=== PATIENT | female | born 1935 | race African-American/Black ===

== ENCOUNTER 2017-07-09 03:48 | Inpatient (IN) | payer MEDICARE ==
[~2017-07-09] VITALS: Ht 172.7 cm; Wt 116.3 kg
[2017-07-09] VITALS (48 sets, daily range): BP systolic 104–192; BP diastolic 44–127
[~2017-07-09 03:48] MED LIST: ALPOS OP; AMLO5TAB1 GT; ATOR40TA GT; DILT120C19 GT; FAMO-90 GT; GLYC2TAB4 GT; KEP500L GT; LACT1CAP4 GT; LAS20I GT; LISI20TA21 GT; MEDI30SO1 GT; MULT-2429 GT; SENN-89 GT; [UNRECOGNIZED DRUG - CODE] GT; [UNRECOGNIZED DRUG - CODE] GT; [UNRECOGNIZED DRUG - CODE] GT; [UNRECOGNIZED DRUG - CODE] PO
--- NOTE | 2017-07-09 03:48 | NUR ---
81/[place] [facility] [place]. PT ON TRACH, MECHANICAL VENT DEPENDENT IN FACILITY. RT AND ERMD AT BEDSIDE. PT SATS AT 84%, PT PLACED ON VENT 100% SATS ON 100 FiO2.
--- NOTE | 2017-07-09 03:48 | NUR ---
0343- PT BIBA ALS. TAKEN TO BED 10. DR. YANG EVALUATING PATIENT AT BEDSIDE
[2017-07-09] MEDS ORDERED: DILTIAZEM 25 MG/5 ML VIAL IVP ONE ×2 (03:50→04:01)
[2017-07-09] MEDS ORDERED: NACL 0.9% 1,000 ML IV ONE ×2 (03:50→06:10)
--- NOTE | 2017-07-09 03:50 | NUR ---
RT AND XRAY AT BEDSIDE
--- NOTE | 2017-07-09 03:50 | NUR ---
PT ON AFIB RVR, AMIODARONE IVP GIVEN, SEE MAR
--- NOTE | 2017-07-09 03:59 | NUR ---
PT ARRIVE [facility] WITH [facility]IA AMBULANCE, PT HAVE A TRACH YASIR, PLACED PT ON VENT AC 12, VT 500, PEEP 5, FIO2 100%, CAN NOT OBTAIN SPUTUM PT IS DRY, ABG DONE, NORMAL RANGE.
[2017-07-09] MEDS ORDERED: AMIODARONE 150 MG in DEXTROSE 5% 100 ML IV ONE ×2 (04:00→07:20)
[2017-07-09] MEDS ORDERED: VANCOMYCIN 1,000 MG in DEXTROSE 5% 250 ML IV ONE (04:00)
[2017-07-09] MEDS ORDERED: AMIODARONE 150 MG/3 ML VIAL IV ONE ×2 (04:10→07:29)
--- NOTE | 2017-07-09 04:20 | NUR ---
BP 124/52, 107HR, 98.2, 22RR, 100% SPO2 ON MECH VENT. PT STABLE AT THIS TIME, NO ACUTE DISTRESS NOTED, ER MD MADE AWARE
[2017-07-09] MEDS: PIPERACILLIN/TAZOBACTAM 3.375 GM in DEXTROSE 5% 50 ML IV ONE ×2 (04:30→06:10)
[2017-07-09] MEDS ORDERED: FUROSEMIDE 40 MG/4 ML VIAL IVP SCH (04:40)
[2017-07-09] MEDS ORDERED: PIPERACILLIN/TAZOBACTAM 3.375 GM VIAL IV ONE (04:46)
[2017-07-09] MEDS ORDERED: AMIODARONE 450 MG in DEXTROSE 5% 250 ML IV ONE (05:00)
--- NOTE | 2017-07-09 05:20 | NUR ---
ER MD YANG PLACED CENTRAL LINE ON RT IJ FOLLOWING STERILE PROCEDURE. STAT CXR PLACED. CXR REVIEWED BY DR YANG, HARBORSIDE, OK FOR MED INFUSION
--- NOTE | 2017-07-09 05:30 | NUR ---
IV removed, catheter intact and site benign. Applied folded 4x4 gauze and tape to stop bleeding.
[2017-07-09] MEDS ORDERED: VANCOMYCIN 1,000 MG VIAL ONE (05:41)
[2017-07-09 05:54] LABS: BASOPHILS # (AUTO) 0.1 K/uL (0.00-0.22); BASOPHILS % (AUTO) 0.6 % (0.0-2.0); EOSINOPHILS % (AUTO) 0.2 % (0.0-4.0); HEMATOCRIT 34.2 % (36-48); LYMPHOCYTES # (AUTO) 0.8 K/uL (2.5-16.5); LYMPHOCYTES % (AUTO) 4.1 % (20.5-51.1); MEAN CORPUSCULAR HEMOGLOBIN 27 pg (27-31); MEAN CORPUSCULAR HGB CONC 32 g/dL (33-37); MEAN CORPUSCULAR VOLUME 83 fL (80-94); MONOCYTES # (AUTO) 1.5 K/uL (0.8-1.0); MONOCYTES % (AUTO) 8.2 % (1.7-9.3); NEUTROPHILS # (AUTO) 16.3 K/uL (1.8-7.7); NEUTROPHILS % (AUTO) 86.9 % (42.2-75.2); PLATELET COUNT (AUTO) 451 K/uL (140-450); RED BLOOD CELL COUNT(AUTO) 4.15 MIL/uL (4.20-5.40); RED CELL DISTRIBUTION WIDTH 17.2 % (11.6-13.7)
[2017-07-09] MEDS ORDERED: DILTIAZEM 125 MG in DEXTROSE 5% 100 ML IV ONE (06:00)
--- NOTE | 2017-07-09 06:00 | NUR ---
VSS, PT STABLE AT THIS TIME # 16 FR Degroot catheter with 10 mlSW utilizing sterile technique. Immediate return of 15 ml YELLOW AND CLOUDY urine noted. Bedside drainage bag placed below level of bladder. Urine sample collected and sent to lab. Pt tolerated procedure WELL.
[2017-07-09] MEDS ORDERED: AMIODARONE 450 MG/9 ML VIAL IV ONE (06:04)
[2017-07-09] MEDS ORDERED: NOREPINEPHRINE 4 MG in DEXTROSE 5% 250 ML IV ONE (06:10)
[2017-07-09] MEDS ORDERED: DILTIAZEM 125 MG/25 ML VIAL IV ONE (06:14)
[2017-07-09 06:15] LABS: ANION GAP 12.6 (8-16); CARBON DIOXIDE 30.2 mmol/L (21-32); CHLORIDE 103 mmol/L (98-107); CREATININE 0.9 mg/dL (0.6-1.3); GLUCOSE 126 mg/dL (74-106); POTASSIUM 3.8 mmol/L (3.5-5.1); SODIUM SERUM 142 mmol/L (136-145); UREA NITROGEN, BLOOD 21 mg/dL (7-18)
[2017-07-09 06:18] LABS: WHITE BLOOD COUNT (AUTO) 18.7 K/uL (4.8-10.8)
[2017-07-09] MEDS ORDERED: NOREPINEPHRINE 4 MG/4 ML VIAL IV ONE (06:21)
[2017-07-09 06:29] LABS: PROTHROMBIN TIME 12.4 secs (10.8-13.4)
[2017-07-09 06:30] LABS: ALBUMIN 1.6 g/dL (3.4-5.0); ASPARTATE AMINOTRANSFERASE 220 U/L (15-37)
[2017-07-09] MEDS ORDERED: NOREPINEPHRINE 8 MG in DEXTROSE 5% 250 ML IV STA (06:33)
--- NOTE | 2017-07-09 06:38 | NUR ---
BP 90/41, 146HR, ER MADE AWARE, ORDER FOR LEVO DRIP, SEE MAR
--- NOTE | 2017-07-09 06:45 | NUR ---
BP LABILE, LEVO TITRATED PER PROTOCOL,SEE MAR
[2017-07-09] MEDS ORDERED: ALBUMIN HUMAN 25% 50 ML IV ONE (07:15)
[2017-07-09] MEDS ORDERED: DIGOXIN 0.25 MG/ML AMP IV ONE ×2 (07:20→07:28)
--- NOTE | 2017-07-09 07:20 | NUR ---
PT IN AFIB RVR 158, ER MD YANG AND NAEL AT BEDSIDE, ORDER TO GIVE DIGOXIN AND AMIODARONE, SEE MAR
[2017-07-09] MEDS ORDERED: ALBUMIN HUMAN 25% 100 ML IV ONE (07:28)
--- NOTE | 2017-07-09 07:35 | NUR ---
Patient will be admitted to care of [facility]. Admited to ICU. Will go to room 3. Belongings list completed.BEDSIDE Report to KAMLESH CHENG. TRANSPORTED WITH INSPECTOR ELEVATORS AND VENT WITH MARK CHENG, SHAILESH RN, AND RT'S. PT STABLE UPON TRANSFER
--- NOTE | 2017-07-09 07:40 | NUR ---
PT ARRIVED TO UNIT VIA GURNEY. REPORT RECEIVED FROM LIBRADO FLORES RN. PT OPENS EYES, BUT DOES NOT FOLLOW COMMANDS, FLACC 0. PT IS TRACH TO VENT. FIO2: 100%, AC: 12, TV: 500, PEEP: 5. PT HAS CENTRAL LINE TO RIJ, TLC, ALL PORTS PATENT AND INTACT. G TUBE IN PLACE, CLAMPED. LOPEZ CATHETER IN PLACE DRAINING TO GRAVITY DRAINAGE BAG. SKIN IS INTACT, OLD SCARRING NOTED TO BILATERAL HANDS, BLE, AND BACK. PT IS CURRENTLY A FIB WITH RVR ON THE MONITOR. PT IS ON LEVOPHED DRIP. ADMISSION ASSESSMENT COMPLETE. MRSA AND G TUBE CULTURE SWABS OBTAINED. SAFETY PRECAUTIONS IN PLACE WITH BED IN LOWEST POSITION AND SIDE RAILS UP X2. CALL LIGHT WITHIN REACH. WILL CONTINUE TO MONITOR.
--- NOTE | 2017-07-09 07:50 | NUR ---
DR. BRANTLEY' GROUP PRESENT AT BEDSIDE.
[2017-07-09] MEDS ORDERED: ACETAMINOPHEN 325 MG TAB PO PRN (08:05)
[2017-07-09] MEDS ORDERED: HYDROcodone/APAP 7.5/325 MG 1 TAB PO PRN (08:05)
--- NOTE | 2017-07-09 08:29 | NUR ---
RCV'D PT ON MECHANICAL VENTILATION TRACHED WITH SHILEY 4 DCT. VENT SETTINGS ARE AC 12,500,100%,+5. TRACH IS IN PLACE AND SECURED. VENT IS CONNECTED TO RED OUTLET. ALARMS ARE AUDIBLE. AMBU BAG AT BEDSIDE. TRANSFERRED PT FROM ER TO ICU WITH NO INCIDENT. PT IS AWAKE AND QUITE.BS DIMINISHED. SXN'D PT FOR SPUTUM SAMPLE BUT PT HAD NO SECRETIONS. WILL TRY AGAIN. WILL CONTINUE TO MONITOR.
[2017-07-09] MEDS: NACL 0.9% 1,000 ML IV SCH ×3 (08:32→23:00)
[2017-07-09] MEDS: PIPER/TAZO 3.375GM/D5W PREMIX 50 ML IV SCH ×3 (08:59→21:22)
[2017-07-09] MEDS ORDERED: ALBUTEROL SULFATE/IPRATROPIU 3 ML SOL IH PRN (09:00)
[2017-07-09] MEDS ORDERED: DOCUSATE SODIUM 100 MG GELCAP PO SCH (09:00)
[2017-07-09] MEDS: AMIODARONE 450 MG in DEXTROSE 5% 250 ML IV SCH ×2 (09:02→17:52)
--- NOTE | 2017-07-09 09:05 | NUR ---
DECREASED FIO2 TO 70%. SKYLAR WHITLOCK AWARE. PT'S SPO2 IS 98%. WILL CONTINUE TO MONITOR.
[2017-07-09] MEDS: LACTOBACILLUS RHAMNOSUS GG 1 EACH CAP GT SCH (09:19)
[2017-07-09] MEDS: DOCUSATE 100 MG/10 ML UDC GT SCH ×2 (09:19→21:19)
[2017-07-09] MEDS ORDERED: [UNRECOGNIZED DRUG - CODE] GT (09:19)
--- NOTE | 2017-07-09 09:22 | NUR ---
PT TOLERATED MEDS WELL.
[2017-07-09 09:29] LABS: BILIRUBIN,URINE 2+ (NEGATIVE); COLOR,URINE YELLOW (YELLOW); LEUKOCYTE ESTERASE ,URINE TRACE (NEGATIVE); NITRITE, URINE NEGATIVE (NEGATIVE); PH,URINE 8.5 (5.0-9.0); UGLUCOSE TRACE (NEGATIVE)
--- NOTE | 2017-07-09 09:39 | NUR ---
CALLED [facility] AND SPOKE WITH CARLEY, . SHE SAID THEY KNOW OF THE PATIENT. GOT INFORMATION FROM ER. FAXED INITIAL REVIEW TO [facility] [phone].
[2017-07-09 09:41] LABS: APPEARANCE,URINE HAZY (CLEAR)
[2017-07-09 09:45] LABS: WBC,URINE 0-5 (RARE) /HPF (0-5)
[2017-07-09 09:47] LABS: BLOOD, URINE 1+ (NEGATIVE); RBC,URINE 3-10 (FEW) /HPF (0-5)
[2017-07-09 09:51] LABS: CHOL/HDL RATIO 5.4 (1-4.5); FREE T4 (FREE THYROXINE) 1.27 ng/dL (0.76-1.46); MAGNESIUM 1.6 mg/dL (1.8-2.4); THYROID STIMULATING HORMONE 1.41 uIU/mL (0.34-3.74)
--- NOTE | 2017-07-09 11:02 | NUR ---
RECEIVED TELEPHONE CONSENT FROM RENETTA PT'S COUSIN AND CONSERVATOR. VERIFIED BY TWO LICENSED RN'S. CONSENT SIGNED AND PLACED IN PT'S CHART.
[2017-07-09] MEDS ORDERED: MAG SULF 2000 MG/WATER PREMIX 50 ML IV SCH (12:00)
--- NOTE | 2017-07-09 12:14 | NUR ---
PLASTICS PLATER PRESENT AT BEDSIDE.
--- NOTE | 2017-07-09 12:21 | NUR ---
SPOKE WITH BERNARD, PT'S NEXT OF KIN, AND UPDATED HER ON PT'S STATUS.
[2017-07-09] MEDS: ALBUTEROL SULFATE/IPRATROPIU 3 ML SOL IH SCH ×2 (13:16→20:19)
--- NOTE | 2017-07-09 13:29 | NUR ---
VENT CHECK DONE. STARTED PT ON HHN TX OF DUONEB PER ORDERS. PT IS TOLERATING WELL. NO SOB OR DISTRESS NOTED. SXN'D PT WITH SML SMT OF LIGHT GREEN SECRETIONS. WILL CONTINUE TO MONITOR.
--- NOTE | 2017-07-09 13:47 | NUR ---
DR. POSEY IN TO SEE PT. WILL FOLLOW UP ON ORDERS.
--- NOTE | 2017-07-09 14:01 | NUR ---
07/09/17 RD INITIAL ASSESSMENT COMPLETED PLEASE REFER TO NUTRITION ASSESSMENT UNDER CARE ACTIVITY FOR ESTIMATED NUTRITIONAL NEEDS. 1. CONTINUE NUTRITION SUPPORT FIBERSOURCE AT 55 ML/HR WITH 45 ML FREE WATER FLUSH Q3H VIA GTUBE, TOLERATED 2. IF PT TOLERATES CURRENT TUBE FEEDING AT GOAL, CONSIDER INCREASING TO 65 ML/HR TO PROVIDE 1560 ML TOTAL VOLUME, 1872 KCAL AND 84 GM PROTEIN TO MEET 100% OF ESTIMATED KCAL AND PROTEIN NEEDS. 3. RD TO FOLLOW-UP 2-3 DAYS, HIGH RISK LALIT NARAYANAN RD
--- NOTE | 2017-07-09 14:40 | NUR ---
PT TAKEN TO CT
--- NOTE | 2017-07-09 14:40 | NUR ---
DECREASED FIO2 TO 70%. SKYLAR WHITLOCK AWARE. WILL CONTINUE TO MONITOR. NO SOB OR DISTRESS NOTED.
--- NOTE | 2017-07-09 15:10 | NUR ---
PT BACK FROM CT AND PLACED ON THE MONITOR.
--- NOTE | 2017-07-09 16:48 | NUR ---
ABG DONE WITH NO INCIDENT. ABG RESULTS GIVEN TO DR CERVANTES. WILL CONTINUE TO MONITOR.
--- NOTE | 2017-07-09 16:48 | NUR ---
ABG DONE WITH NO INCIDENT. RESULTS GIVEN TO DR CERVANTES. DECREASED FIO2 TO 50%. RN KAMLESH ALTAMIRANO. WILL CONTINUE TO MONITOR. NO SOB OR DISTRESS NOTED.
--- NOTE | 2017-07-09 17:10 | NUR ---
DR. TELLEZ IN TO SEE PT. WILL FOLLOW UP ON ORDERS.
--- NOTE | 2017-07-09 18:08 | NUR ---
CHECKED ON PT. NO SIGNS OF ACUTE DISTRESS AT THIS TIME, FLACC 0. CALL LIGHT WITHIN REACH. WILL CONTINUE TO MONITOR.
--- NOTE | 2017-07-09 18:36 | NUR ---
DECREASED FIO2 TO 30%. NO SOB OR DISTRESS NOTED.
--- NOTE | 2017-07-09 19:23 | NUR ---
ENDORSED CARE TO SKYLAR ROSARIO. PT IN STABLE CONDITION.
--- NOTE | 2017-07-09 19:30 | NUR ---
RECEIVED REPORT FROM KAMLESH PAN RN. PT EYES OPEN BUT NONVERBAL. VS STABLE AT THIS TIME. TRACH TO VENT WITH SETTINGS FIO2 30%, RR 12, TV 500, AND PEEP 5. NO SOB OR SIGNS OF RESPIRATORY DISTRESS NOTED. PULSES PALPABLE IN ALL EXTREMITIES. AFIB ON MONITOR. ON AMIODARONE DRIP. PT HAS RIGHT IJ TRIPLE LUMEN CENTRAL LINE. ALL LINES PATENT AND ASYMPTOMATIC. ABLE TO GET BLOOD RETURN FROM ALL PORTS. GTUBE IN PLACE. GTUBE TO FEEDING FIBERSOURCE 55ML/HR. ASPIRATED 60ML RESIDUAL. LOPEZ CATHETER IN PLACE AND DRAINING CLEAR, LIGHT SURENDRA URINE. SCD IN PLACE. HOB KEPT AT 30 DEGREES. BED AT LOW POSITION. ALL SAFETY PRECAUTIONS IN PLACE. CALL LIGHT WITHIN REACH. WILL CONTINUE TO MONITOR PT.
--- NOTE | 2017-07-09 20:29 | NUR ---
RECEIVED PT STABLE ON VENT SUPPORT AT DOCUMENTED SETTINGS, SXN'D SMALL WHITE THICK SECRETIONS, HHN TX GIVEN, TOLERATED WELL, NO RESP DISTRESS OR SOB NOTED AT THIS TIME, SHILEY 4 DCT TRACH SECURED/MIDLINE/PATENT, ALARMS SET AND AUDIBLE, AMBU BAG AT BEDSIDE, VENT PLUGGED INTO RED OUTLET, WILL CONT TO MONITOR.
--- NOTE | 2017-07-09 20:46 | NUR ---
DR. NAIK AT BEDSIDE TO SEE PT. WILL FOLLOW-UP WITH ANY NEW ORDERS.
[2017-07-09] MEDS: ATORVASTATIN 20 MG TAB GT SCH (21:19)
[2017-07-09] MEDS: levETIRAcetam 100 MG/ML ORASYR GT SCH (21:19)
[2017-07-09] MEDS: FAMOTIDINE 20 MG TAB GT SCH (21:19)
[2017-07-09] MEDS: BRIMONIDINE TARTRATE 0.2% OP 5 ML BTL BOTH EYES SCH (21:20)
--- NOTE | 2017-07-09 21:30 | NUR ---
SCHEDULED MEDICATIONS ADMINISTERED. PT TOLERATED WELL. HOB KEPT AT 30 DEGREES. ALL SAFETY PRECAUTIONS IN PLACE. CALL LIGHT WITHIN REACH. WILL CONTINUE TO MONITOR PT.
[2017-07-10] VITALS (57 sets, daily range): BP systolic 64–170; BP diastolic 39–81
--- NOTE | 2017-07-10 00:34 | NUR ---
PT TURNED AND REPOSITIONED. NO CHANGE IN CONDITION AT THIS TIME. VS STABLE. STILL ON AMIODARONE DRIP. GTUBE TO FEEDING WITH FORMULA RUNNING AT 55ML/HR. HOB AT 30 DEGREES. ALL SAFETY PRECAUTIONS IN PLACE. CALL LIGHT WITHIN REACH. WILL CONTINUE TO MONITOR PT.
--- NOTE | 2017-07-10 01:22 | NUR ---
VS STABLE AT THIS TIME. NO CHANGE IN CONDITION. AFIB ON MONITOR. NO SIGNS OF DISTRESS NOTED. KEPT HOB AT 30 DEGREES. FEEDING RUNNING CONTINUOUSLY. ALL SAFETY PRECAUTIONS IN PLACE. WILL CONTINUE TO MONITOR.
[2017-07-10] MEDS: PIPER/TAZO 3.375GM/D5W PREMIX 50 ML IV SCH ×4 (02:20→20:27)
--- NOTE | 2017-07-10 02:25 | NUR ---
MEDICATION ADMINISTERED. CENTRAL LINE PATENT AND ASYMPTOMATIC. VS STABLE AT THIS TIME. PT NOT IN ANY DISTRESS. WILL CONTINUE TO MONITOR.
--- NOTE | 2017-07-10 03:46 | NUR ---
PT TURNED AND REPOSITIONED. PT CLEANED AND LINENS CHANGED. TOLERATED BEING TURNED AND CLEANED FAIRLY. NO BM NOTED. LOPEZ CATHETER DRAINING CLEAR, YELLOW TO LIGHT SURENDRA URINE. LOPEZ CARE PROVIDED. VS STABLE AT THIS TIME. NO CHANGE IN CONDITION CURRENTLY. CALL LIGHT WITHIN REACH. WILL CONTINUE TO MONITOR PT.
--- NOTE | 2017-07-10 04:55 | NUR ---
LINE ASYMPTOMATIC AND PATENT. DRAW BLOOD FROM CENTRAL LINE FOR LABS SCHEDULED THIS AM. GOOD BLOOD RETURN NOTED. NO CHANGE IN CONDITION AT THIS TIME. PT VS STABLE.
[2017-07-10 05:16] LABS: BASOPHILS # (AUTO) 0.1 K/uL (0.00-0.22); BASOPHILS % (AUTO) 0.3 % (0.0-2.0); EOSINOPHILS # (AUTO) 0.1 K/uL (0-0.4); EOSINOPHILS % (AUTO) 0.4 % (0.0-4.0); HEMATOCRIT 29.5 % (36-48); HEMOGLOBIN 9.8 g/dL (12.0-16.0); LYMPHOCYTES # (AUTO) 0.5 K/uL (2.5-16.5); LYMPHOCYTES % (AUTO) 2.6 % (20.5-51.1); MEAN CORPUSCULAR HEMOGLOBIN 27 pg (27-31); MEAN CORPUSCULAR HGB CONC 33 g/dL (33-37); MEAN CORPUSCULAR VOLUME 82 fL (80-94); MONOCYTES # (AUTO) 0.9 K/uL (0.8-1.0); MONOCYTES % (AUTO) 4.7 % (1.7-9.3); NEUTROPHILS # (AUTO) 17.2 K/uL (1.8-7.7); PLATELET COUNT (AUTO) 313 K/uL (140-450); RED BLOOD CELL COUNT(AUTO) 3.58 MIL/uL (4.20-5.40); RED CELL DISTRIBUTION WIDTH 17.4 % (11.6-13.7)
--- NOTE | 2017-07-10 05:58 | NUR ---
DR. ERNST AT BEDSIDE TO SEE PT. WILL FOLLOW-UP WITH ANY NEW ORDERS
[2017-07-10 06:21] LABS: WHITE BLOOD COUNT (AUTO) 18.8 K/uL (4.8-10.8)
[2017-07-10 06:38] LABS: CARBON DIOXIDE 26.5 mmol/L (21-32); CHLORIDE 107 mmol/L (98-107); CREATININE 1.1 mg/dL (0.6-1.3); GLUCOSE 136 mg/dL (74-106); POTASSIUM 3.5 mmol/L (3.5-5.1); SODIUM SERUM 143 mmol/L (136-145); UREA NITROGEN, BLOOD 20 mg/dL (7-18)
[2017-07-10 06:40] LABS: PHOSPHORUS 3.2 mg/dL (2.5-4.9)
[2017-07-10] MEDS: ALBUTEROL SULFATE/IPRATROPIU 3 ML SOL IH SCH ×3 (06:54→19:35)
--- NOTE | 2017-07-10 06:54 | NUR ---
REC'D PT ON CARESCAPE VENT SETTINGS AC14 VT500 PEEP 5 FIO2 30% ALARMS ON AND FUNCTIONING PROPERLY, AMBU BAG AT SIDE OF VENT AND VENTILATOR IS PLUGGED INTO RED OUTLET, I\L TX GIVEN WITH DUONEB 3ML WITH NO ADVERSE REACTION POST TX, B\S ARE RHONCHI BILATERALLY, SXN PT SMALL AMT OF THICK WHITE SECRETIONS, PT IS TRACH WITH SHILEY 4 DCT AND SKIN INTEGRITY IS INTACT, CUFF PRESSURE IS 26 CM H2 Addendum: 07/10/17 at 0828 by Maye Garcia RT H20 AND PT IS RESTING
--- NOTE | 2017-07-10 07:20 | NUR ---
REPORT GIVEN TO SKYLAR SLOAN FOR CONTINUITY OF CARE. PT IN STABLE CONDITION.
--- NOTE | 2017-07-10 08:00 | NUR ---
INITIAL SHIFT ASSESSMENT DONE. AWAKE BUT LETHARGIC, NOT FOLLOWING ANY COMMANDS. ALL EXTREMITIES ARE CONTRACTED. NO SIGNS OF PAIN NOTED. ON VENTILATOR VIA TRACH, TOLERATING CURRENT SETTINGS WELL. O2 SAT 98-100%. A-FIB ON MONITOR, ON AMIODARONE DRIP. SBP IN 110'S-130'S. NO ECTOPY NOTED. ON TUBE FEEDING, TOLERATING WELL. RESIDUALS OF 10 ML ONLY. HOB ELEVATED. UPDATED OF PLAN OF CARE. WILL CONTINUE TO MONITOR.
--- NOTE | 2017-07-10 08:20 | NUR ---
ABG DRAWN ON RR WITHOUT INCIDENT AND REPORT GIVEN TO RN LUTHER NO CHANGES MADE TO VENT
[2017-07-10] MEDS: FUROSEMIDE 20 MG/2 ML VIAL IVP SCH (09:11)
[2017-07-10] MEDS: MULTIVITAMIN 5 ML ORASYR GT SCH (09:11)
[2017-07-10] MEDS: DOCUSATE 100 MG/10 ML UDC GT SCH ×2 (09:11→20:37)
[2017-07-10] MEDS: LACTOBACILLUS RHAMNOSUS GG 1 EACH CAP GT SCH (09:11)
[2017-07-10] MEDS: levETIRAcetam 100 MG/ML ORASYR GT SCH ×2 (09:13→20:26)
[2017-07-10] MEDS: BRIMONIDINE TARTRATE 0.2% OP 5 ML BTL BOTH EYES SCH ×2 (09:13→20:27)
--- NOTE | 2017-07-10 09:15 | NUR ---
VENT CHECK, NO SXN NEEDED AT THIS TIME, AIRWAY IS PATENT AND PT RESTING
[2017-07-10 09:20] LABS: TRANSFERRIN 135 mg/dL (200-370)
--- NOTE | 2017-07-10 10:00 | NUR ---
RESTING IN BED. NO SIGNS OF PAIN. TOLERATING VENTILATOR WELL. O2 SAT 98-100%. AFIB ON MONITOR. SBP IN 130'S-150'S. NO ECTOPY NOTED. HOB ELEVATED. WILL CONTINUE TO MONITOR.
--- NOTE | 2017-07-10 10:30 | NUR ---
AMIODARONE DRIP TURN OFF AT THIS TIME PER MD ORDER TO RUN FOR 24 HOURS ONLY. RESIDENT STATED THAT SHE WILL CALL DR ROSS FOR ORDER OF AMIODARONE G VIA G-TUBE. Addendum: 07/10/17 at 1709 by Agency 02 RN RN AMIODARONE DRIP TURN OFF AT THIS TIME PER MD ORDER TO RUN FOR 24 HOURS ONLY. RESIDENT STATED THAT SHE WILL CALL DR TELLEZ FOR ORDER OF AMIODARONE VIA G-TUBE.
[2017-07-10] MEDS: NACL 0.9% 1,000 ML IV SCH (10:43)
[2017-07-10] MEDS: ONDANSETRON 4 MG/2 ML VIAL IVP PRN (10:51)
--- NOTE | 2017-07-10 10:51 | NUR ---
VOMITTED AT THIS TIME. GIVEN ZOFRAN IVP. GIVEN ALSO ORAL CARE. WILL CONTINUE TO MONITOR.
--- NOTE | 2017-07-10 10:52 | NUR ---
TUBE FEEDING TURN OFF.
--- NOTE | 2017-07-10 11:00 | NUR ---
VENT CHECK SXN PT SMALL AMT OF WHITE SECRETIONS,
--- NOTE | 2017-07-10 11:00 | NUR ---
DR TOMPKINS IS IN THE ROOM. UPDATED OF STATUS. NO NEW ORDER RECEIVE.
--- NOTE | 2017-07-10 11:12 | NUR ---
CALLED [facility]. THE DESK LIEUTENANT IS DM. I WAS TOLD SHE WOULD CALL ME AFTER I SEND IN REVIEW. FAXED CONCURRENT REVIEW AND ORDER FOR TRANSFER TO [facility] [phone]. PHONE [phone].
--- NOTE | 2017-07-10 12:00 | NUR ---
REASSESSMENT DONE. NEURO STATUS STILL THE SAME. NO SIGNS OF PAIN OR AGITATION NOTED. TOLERATING CURRENT VENTILATOR SETTINGS WELL. O2 SAT 97-100%. A-FIB ON MONITOR. SBP IN 130'S-170. NO ECTOPY NOTED. VOMITED AGAIN AT THIS TIME. GIVEN ORAL CARE AND PARTIAL BATH. LINENS ARE ALSO CHANGE. TOLERATED THE PROCEDURE WELL. TUBE FEEDING STILL ON HOLD. HOB ELEVATED. UPDATED OF PLAN OF CARE. WILL CONTINUE TO MONITOR.
--- NOTE | 2017-07-10 12:25 | NUR ---
[place] [employer] MINISTER DM CALL THE UNIT AT THIS TIME. UPDATED OF STATUS.
--- NOTE | 2017-07-10 13:16 | NUR ---
VENT CHECK, NO SXN REQUIRED AT THIS TIME AIRWAY IS PATENT NO HHN GIVEN TO HIGH HEART RATE OF 147 AND RN LUHTER NOTIFIED
[2017-07-10] MEDS ORDERED: AMIODARONE 200 MG TAB PO SCH (13:32)
[2017-07-10] MEDS ORDERED: AMIODARONE 450 MG in DEXTROSE 5% 250 ML IV SCH (13:35)
--- NOTE | 2017-07-10 13:39 | NUR ---
GIVEN CORDARONE 400 MG VIA G-TUBE BY SKYLAR OSEGUERA PER DR POSEY'S ORDER. HR OF 130'S-140'S, A-FIB. WILL CONTINUE TO MONITOR.
[2017-07-10] MEDS ORDERED: DILTIAZEM 25 MG/5 ML VIAL IVP SCH (14:00)
--- NOTE | 2017-07-10 14:11 | NUR ---
GIVEN CARDIZEM 10 MG IVP BY SKYLAR OSEGUERA PER DR POSEY'S ORDER. HR IN 130'S-150'S, A-FIB. WILL CONTINUE TO MONITOR.
--- NOTE | 2017-07-10 14:20 | NUR ---
PROFESSOR OF JOURNALISM DM OF [place] CALLED BACK THE UNIT AT THIS TIME. UPDATED OF STATUS. DM STATED THAT THE TRANSFER TO [place] IS CANCELED. PROFESSOR OF JOURNALISM YESSENIA AWARE OF THE CANCEL OF TRANSFER TO [place].
[2017-07-10] MEDS: AMIODARONE 450 MG in DEXTROSE 5% 250 ML IV SCH (14:31)
--- NOTE | 2017-07-10 14:31 | NUR ---
AMIODARONE DRIP RESTARTED AT 0.5 MG/MIN PER DR POSEY'S ORDER. HR IN 110'S-130'S, A-FIB. WILL CONTINUE TO MONITOR.
--- NOTE | 2017-07-10 14:32 | NUR ---
RECEIVED A CALL FROM DM AT [facility] AND INFORMED HER THAT THE PATIENT'S HEART RATE WHEN UP TO 140'S. SHE SPOKE WITH ICU, AND INFORMED US THAT THEY WILL NOT TAKE THE PATIENT TODAY. DR. KLEVER ALTAMIRANO.
--- NOTE | 2017-07-10 15:19 | NUR ---
VENT CHECK SXN BOTH MOUTH AND TRACH L[place] BROWN SECRETIONS, AIRWAY IS PATENT AND PT IS RESTING
[2017-07-10 15:46] LABS: FOLIC ACID > 20.00 ng/mL (>3.0)
--- NOTE | 2017-07-10 16:00 | NUR ---
REASSESSMENT DONE. NEURO STATUS UNCHANGED. NO SIGNS OF PAIN NOTED. TOLERATING CURRENT VENTILATOR SETTINGS WELL. O2 SAT 93-98%. A-FIB ON MONITOR. SBP IN 90'S. NO ECTOPY NOTED. ON AMIODARONE DRIP. HOB ELEVATED. UPDATED OF PLAN OF CARE. WILL CONTINUE TO MONITOR.
[2017-07-10] MEDS: NOREPINEPHRINE 8 MG in NACL 0.9% 250 ML IV PRN (16:42)
--- NOTE | 2017-07-10 16:42 | NUR ---
SBP IN 80'S. LEVOPHED DRIP STARTED AT 5 MCG/MIN. WILL CONTINUE TO MONITOR.
[2017-07-10] MEDS ORDERED: NACL 0.9% 500 ML IV SCH (16:55)
--- NOTE | 2017-07-10 16:55 | NUR ---
DR TELLEZ IS HERE. UPDATED OF STATUS. NEW ORDER RECEIVE.
--- NOTE | 2017-07-10 16:58 | NUR ---
GIVEN NS 500 ML IVPB FOR [address] TELLEZ'S ORDER. WILL CONTINUE TO MONITOR.
--- NOTE | 2017-07-10 17:11 | NUR ---
VENT CHECK, NO SXN REQUIRED AT THIS TIME AIRWAY IS PATENT TRACH CARE DONE : CHANGE TRACH GAUZE
--- NOTE | 2017-07-10 17:22 | NUR ---
SBP IN 110'S-130. LEVOPHED DRIP DECREASE TO 3 MCG/MIN PER DR TELLEZ. WILL CONTINUE TO MONITOR.
[2017-07-10 17:31] LABS: FERRITIN 731 ng/mL (15 - 150)
--- NOTE | 2017-07-10 18:00 | NUR ---
NO RESIDUALS. RESTARTED TUBE FEEDING AT THIS TIME.
--- NOTE | 2017-07-10 19:25 | NUR ---
REPORT GIVEN TO INCOMING SIGNAL MANAGER RN, SKYLAR CARTER.
--- NOTE | 2017-07-10 19:30 | NUR ---
REPORT RECEIVED FROM MORNING NURSE. PT IS AWAKE BUT EYES DOES NOT FOLLOW, NONVERBAL, AND UNABLE TO FOLLOW DIRECTIONS. TRACH TO VENT AC 12, FIO2 30%, TV 500, PEEP 5. BILATERAL LUNG SOUNDS DIMINISHED WITH CRACKLES TO THE RIGHT UPPER LUNG. S1 AND S2 HEARD WITHOUT ANY ABNORMAL HEART SOUNDS. BOWEL SOUNDS ACTIVE FROM ALL 4 QUADS. CONTRACTURES NOTED TO BILATERAL HANDS AND FEET AND RIGID. RIJ CENTRAL LINE WITH TRIPLE LUMEN PATENT AND ASYMPTOMATIC. LOPEZ DRAINING YELLOW URINE VIA GRAVITY. FLACC=0. AMIODARONE DRIP AND LEVOPHED DRIP RUNNING. DR. HENNING MADE AWARE OF PT'S AFIB AND TACHYCARDIA. CALL LIGHT IN REACH AND HOB ELEVATED TO 30 DEGREES. BED KEPT TO THE LOWEST AND BILATERAL S/R WITH PADS. WILL CONTINUE TO MONITOR.
[2017-07-10] MEDS: ATORVASTATIN 20 MG TAB GT SCH (20:26)
[2017-07-10] MEDS: FAMOTIDINE 20 MG TAB GT SCH (20:26)
[2017-07-10] MEDS: AMIODARONE 200 MG TAB PO SCH (20:26)
--- NOTE | 2017-07-10 20:50 | NUR ---
PT BP 64/39. ML=022. 95%. ON LEVOPHED 3 MCG/MIN. TITRATED TO 5 MCG/MIN. WILL CONTINUE TO MONITOR.
--- NOTE | 2017-07-10 20:57 | NUR ---
BP 108/58. AQ=979. 97%. WILL CONTINUE WITH LEVOPHED 5 MCG/MIN. NOTED INCREASED CRACKLES AND SUCTIONED 10ML OF TUBE FEEDING CONTENT FROM THE MOUTH. STOPPED FEEDING IMMEDIATELY. 5ML RESIDUAL NOTED. NOTIFIED. DR. NAIK ABOUT PT'S CONDITION AND ORDERED TO CONTINUE TO HOLD THE TUBE FEEDING FOR NOW AND CONTINUE WITH AMIODORONE DRIP AND LEVOPHED DRIP.
[2017-07-10] MEDS ORDERED: NACL 0.9% 500 ML IV ONE (23:20)
--- NOTE | 2017-07-10 23:20 | NUR ---
REPORTED TO DR. TELLEZ ABOUT PT'S HR BEING HIGH (140-TO HIGH 150) AND BP HAS BEEN LOW AND BEEN ON LEVOPHED DRIP. PT IS ON AMIODARONE DRIP WELL. DR. TELLEZ ORDERED TO ADMINISTER NS 500ML OVER 2 HRS AND STOP THE CURRENT IVF WHILE THE NS 500ML IS ADMINISTERING. NOTED AND WILL CARRY OUT.
[2017-07-11] VITALS (101 sets, daily range): BP systolic 76–153; BP diastolic 32–101
--- NOTE | 2017-07-11 | NUR ---
PT NOTED WITH FEVER OF 102.5 F. ADMINISTERED TYLENOL ORDERED AND COOLING MEASURES APPLIED. PT HAD A LARGE PASTY AND SOFT BM. ASSISTED WITH INCONTINENCE CARE.
[2017-07-11] MEDS: NACL 0.9% 1,000 ML IV SCH ×4 (00:01→23:41)
[2017-07-11] MEDS ORDERED: LORazepam 1 MG TAB PO PRN (00:05)
--- NOTE | 2017-07-11 00:15 | NUR ---
G-TUBE CAME OUT OF THE STOMA AND THE G-TUBE WAS UNABLE TO BE RE-INSERTED BUT GASTRIC CONTENT IS LEAKING. DR. NAIK IN THE UNIT AND WAS NOTIFIED. WILL FOLLOW UP WITH ORDERS. Addendum: 07/11/17 at 0114 by Amarilys Cross RN CHARTING AMEND: G-TUBE WAS ABLE TO BE RE-INSERTED.
--- NOTE | 2017-07-11 00:30 | NUR ---
APPLIED COOLING BLANKET AND RECTAL THERMOMETER IN PLACE ACCURATELY MONITOR TEMPERATURE. WILL CONTINUE TO MONITOR.
[2017-07-11] MEDS: ONDANSETRON 4 MG/2 ML VIAL IVP PRN (00:36)
--- NOTE | 2017-07-11 01:00 | NUR ---
TLHP=462.8 F NOTED.
--- NOTE | 2017-07-11 01:00 | NUR ---
INCREASED LEVOPHED TO 7 MCG/MIN DUE TO BP=81/56.
--- NOTE | 2017-07-11 01:30 | NUR ---
LICJ=124.0 F NOTED.
--- NOTE | 2017-07-11 02:00 | NUR ---
TEMP=98.8 F NOTED.
[2017-07-11] MEDS: PIPER/TAZO 3.375GM/D5W PREMIX 50 ML IV SCH ×4 (02:24→20:56)
[2017-07-11] MEDS ORDERED: AMIODARONE 450 MG/9 ML VIAL IV ONE ×2 (03:41→20:42)
--- NOTE | 2017-07-11 03:57 | NUR ---
PT ON CONTINUOUS CARDIAC MONITORING. AFIB WITH HR 145 ON MONITOR. BP= 91/75. AMIODARONE DRIP AND LEVOPHED DRIP @ 7 MCG/MIN. TRACH TO VENT WITH THE SAME SETTING THE START OF THE SHIFT. URINE IN THE CATHETER BAG NOTED CLEAR YELLOW BUT ONLY ABOUT 20ML SINCE THE START OF THE SHIFT. DR. NAIK IN THE UNIT AND NOTIFIED THE FINDINGS. ALL SAFETY PRECAUTIONS ARE IN PLACE. WILL CONTINUE TO MONITOR.
--- NOTE | 2017-07-11 04:50 | NUR ---
BP=78/56. [place]=777. 92%. INCREASED LEVOPHED DRIP TO 9 MCG/MIN. WILL CONTINUE TO MONITOR.
[2017-07-11] MEDS: AMIODARONE 450 MG in DEXTROSE 5% 250 ML IV SCH ×2 (05:13→20:59)
[2017-07-11 05:52] LABS: CARBON DIOXIDE 17.6 mmol/L (21-32); CHLORIDE 107 mmol/L (98-107); CREATININE 2.5 mg/dL (0.6-1.3); GLUCOSE 77 mg/dL (74-106); POTASSIUM 3.6 mmol/L (3.5-5.1); SODIUM SERUM 144 mmol/L (136-145); UREA NITROGEN, BLOOD 31 mg/dL (7-18)
[2017-07-11 05:58] LABS: MAGNESIUM 1.9 mg/dL (1.8-2.4); PHOSPHORUS 3.9 mg/dL (2.5-4.9)
--- NOTE | 2017-07-11 06:00 | NUR ---
DR. ERNST AT BED SIDE. UPDATED DR WITH PT'S CONDITION INCLUDING G-TUBE BEING ON HOLD DUE TO EARLIER DISLODGEMENT AND IT'S BACK IN THE PLACE BUT GASTRIC CONTENTS ARE CONTINUED TO BE LEAKING. URINE OUTPUT ONLY OBTAINED 20ML DURING THE SHIFT. PT CONTINUES TO BE ON LEVOPHED AND AMIODARONE DRIPS. WILL FOLLOW UP WITH ANY ORDERS.
[2017-07-11 06:24] LABS: HEMATOCRIT 31.3 % (36-48); HEMOGLOBIN 10.4 g/dL (12.0-16.0); MEAN CORPUSCULAR HEMOGLOBIN 27 pg (27-31); MEAN CORPUSCULAR HGB CONC 33 g/dL (33-37); MEAN CORPUSCULAR VOLUME 83 fL (80-94); PLATELET COUNT (AUTO) 381 K/uL (140-450); RED BLOOD CELL COUNT(AUTO) 3.79 MIL/uL (4.20-5.40); RED CELL DISTRIBUTION WIDTH 17.7 % (11.6-13.7); WHITE BLOOD COUNT (AUTO) 22.1 K/uL (4.8-10.8)
[2017-07-11] MEDS: ALBUTEROL SULFATE/IPRATROPIU 3 ML SOL IH SCH ×3 (06:30→19:00)
--- NOTE | 2017-07-11 06:58 | NUR ---
XRAY AT BED SIDE AT THIS TIME.
[2017-07-11 06:59] LABS: LYMPHOCYTES % (MANUAL) 7 % (20-46); MONOCYTES % (MANUAL) 4 % (5-12)
--- NOTE | 2017-07-11 07:14 | NUR ---
GAVE REPORT TO MORNING NURSELUTHER FOR CONTINUITY OF CARE. PT CONTINUING WITH LEVOPHED AND AMIODARONE DRIPS AND ON CONTINUOUS CARDIAC MONITORING. ALL CARE ENDORSED TO THE MORNING SHIFT.
--- NOTE | 2017-07-11 08:00 | NUR ---
0730 - SBP IN 120'S. LEVOPHED DRIP DECREASE TO 14 MCG/MIN. WILL CONTINUE TO MONITOR. 0745 - SBP IN 140'S. LEVOPHED DRIP DECREASE TO 13 MCG/MIN. WILL CONTINUE TO MONITOR. 0800 - INITIAL SHIFT ASSESSMENT DONE. OBTUNDED, DOES NOT FOLLOW COMMAND. ALL EXTREMITIES ARE CONTRACTED. NO SIGNS OF PAIN OR AGITATION. ON VENTILATOR VIA TRACH, TOLERATING CURRENT SETTINGS WELL. O2 SAT 98-100%. A-FIB ON MONITOR, ON AMIODARONE DRIP. SBP IN 120'S. LEVOPHED DRIP DECREASE TO 12 MCG/MIN. NO ECTOPY NOTED. G-TUBE CLAMPED D/T LEAKING. NOTED GENERALIZED EDEMA, 1+ TO 2+, NON PITTING. HOB ELEVATED. UPDATED OF PLAN OF CARE. WILL CONTINUE TO MONITOR.
[2017-07-11] MEDS: DOCUSATE 100 MG/10 ML UDC GT SCH (09:00)
[2017-07-11] MEDS: AMIODARONE 200 MG TAB PO SCH (09:00)
[2017-07-11] MEDS: levETIRAcetam 100 MG/ML ORASYR GT SCH (09:00)
[2017-07-11] MEDS: MULTIVITAMIN 5 ML ORASYR GT SCH (09:00)
[2017-07-11] MEDS: LACTOBACILLUS RHAMNOSUS GG 1 EACH CAP GT SCH (09:00)
[2017-07-11] MEDS: FUROSEMIDE 20 MG/2 ML VIAL IVP SCH (09:14)
[2017-07-11] MEDS: BRIMONIDINE TARTRATE 0.2% OP 5 ML BTL BOTH EYES SCH ×2 (09:14→21:11)
--- NOTE | 2017-07-11 10:00 | NUR ---
RESTING IN BED. NO SIGNS OF PAIN OR AGITATION. TOLERATING VENTILATOR WELL. O2 SAT 99-100%. A-FIB ON MONITOR. SBP IN 90'S-110'S. NO ECTOPY NOTED. HOB ELEVATED. WILL CONTINUE TO MONITOR.
[2017-07-11] MEDS ORDERED: DILTIAZEM IV SCH ×2 (10:10→10:30)
[2017-07-11] MEDS ORDERED: NACL 0.9% IV SCH ×2 (10:10→10:30)
[2017-07-11] MEDS ORDERED: DILTIAZEM 25 MG/5 ML VIAL IVP SCH (10:45)
--- NOTE | 2017-07-11 10:55 | NUR ---
GIVEN CARDIZEM 5 MG IVP AT 1054 AND STARTED ON CARDIZEM DRIP AT 5 MG/HR AT THIS TIME PER DR TELLEZ'S ORDER. WILL CONTINUE TO MONITOR.
[2017-07-11] MEDS: NOREPINEPHRINE 8 MG in NACL 0.9% 250 ML IV PRN ×2 (11:11→23:48)
--- NOTE | 2017-07-11 11:20 | NUR ---
SBP IN 150'S. LEVOPHED DRIP DECREASE TO 11 MCG/MIN. WILL CONTINUE TO MONITOR.
--- NOTE | 2017-07-11 11:35 | NUR ---
DR POSEY IS IN THE ROOM. UPDATED OF STATUS. PUT ON CVP MONITOR PER DR POSEY'S ORDER. UPDATED OF CVP READING. WILL CONTINUE TO MONITOR.
--- NOTE | 2017-07-11 11:43 | NUR ---
SBP IN 90'S. HR IN 120'S. CARDIZEM DRIP DECREASE TO 4 MG/HR PER DR POSEY. WILL CONTINUE TO MONITOR.
--- NOTE | 2017-07-11 12:00 | NUR ---
REASSESSMENT DONE. NEURO STATUS STILL THE SAME. NO SIGNS OF PAIN OR AGITATION NOTED. TOLERATING CURRENT VENTILATOR SETTINGS WELL. O2 SAT 96-100%. A-FIB ON MONITOR. SBP IN 80-100. NO ECTOPY NOTED. HOB ELEVATED. UPDATED OF PLAN OF CARE. WILL CONTINUE TO MONITOR.
[2017-07-11 12:31] LABS: CREATININE 2.8 mg/dL (0.6-1.3); GLUCOSE 71 mg/dL (74-106); UREA NITROGEN, BLOOD 35 mg/dL (7-18)
[2017-07-11 12:38] LABS: ANION GAP 21.6 (8-16); CARBON DIOXIDE 18.5 mmol/L (21-32); CHLORIDE 108 mmol/L (98-107); POTASSIUM 4.1 mmol/L (3.5-5.1); SODIUM SERUM 144 mmol/L (136-145)
--- NOTE | 2017-07-11 13:47 | NUR ---
SBP IN 80'S. LEVOPHED DRIP INCREASE TO 12 MCG/MIN. WILL CONTINUE TO MONITOR.
--- NOTE | 2017-07-11 14:00 | NUR ---
RESTING IN BED. NO SIGNS OF PAIN OR AGITATION NOTED. TOLERATING VENTILATOR WELL. O2 SAT 97-100%. A-FIB ON MONITOR. SBP IN 90'S-100'S. NO ECTOPY NOTED. HOB ELEVATED. WILL CONTINUE TO MONITOR.
--- NOTE | 2017-07-11 15:02 | NUR ---
CM NOTE CONCURRENT REVIEW FAXED TO [facility] / FAX# [phone], C: [phone].
--- NOTE | 2017-07-11 15:50 | NUR ---
SBP IN 80'S. LEVOPHED DRIP INCREASE TO 13 MCG/MIN. WILL CONTINUE TO MONITOR.
--- NOTE | 2017-07-11 16:00 | NUR ---
REASSESSMENT DONE. NEURO STATUS UNCHANGED. NO SIGNS OF PAIN OR AGITATION NOTED. TOLERATING CURRENT VENTILATOR SETTINGS WELL. O2 SAT 98-100%. A-FIB ON MONITOR. SBP IN 80'S. NO ECTOPY NOTED. DR ERNST IS HERE. UPDATED OF STATUS. MD STATED TO TITRATE THE LEVOPHED DRIP TO KEEP MAP EQUAL OR ABOVE 65. HOB ELEVATED. UPDATED OF PLAN OF CARE. WILL CONTINUE TO MONITOR.
[2017-07-11] MEDS ORDERED: NACL 0.9% 1,000 ML IV SCH ×2 (16:10→18:25)
--- NOTE | 2017-07-11 16:15 | NUR ---
DR ERNST TALK ON THE PHONE TO THE PATIENT'S COUSIN (RENETTA SANCHEZ AND BERNARD THOMAS - NEXT OF KIN) IN [facility]. NEXT OF KIN STILL WANT FULL CODE PER DR ERNST.
[2017-07-11] MEDS ORDERED: NACL 0.9% 1,000 ML IV ONE (16:20)
--- NOTE | 2017-07-11 16:39 | NUR ---
GIVEN NS [address] ERNST'S ORDER. WILL CONTINUE TO MONITOR.
--- NOTE | 2017-07-11 17:30 | NUR ---
TRANSFER TO ICU ROOM 1 BY BED WITH PORTABLE VENTILATOR AND PLATFORM MATERIAL HANDLING SUPERVISOR. ACCOMPANIED BY 2 RN'S AND 2 RT'S. TOLERATED THE PROCEDURE WELL.
--- NOTE | 2017-07-11 17:30 | NUR ---
TRANSFERRED PT TO ICU BED 1 FROM BED 3. PT ALAYNA TRANSFER WELL WITHOUT ANY EVENTS.
--- NOTE | 2017-07-11 18:00 | NUR ---
RESTING IN BED. NO SIGNS OF PAIN OR AGITATION NOTED. TOLERATING VENTILATOR WELL. O2 SAT 100%. A-FIB ON MONITOR. SBP IN 90'S-120'S, LEVOPHED DRIP DECREASE TO 12 MCG/MIN. NO ECTOPY NOTED. HOB ELEVATED. WILL CONTINUE TO MONITOR.
--- NOTE | 2017-07-11 18:30 | NUR ---
DR POSEY CALL THE UNIT AT THIS TIME. UPDATED OF STATUS. NEW ORDER RECEIVE.
--- NOTE | 2017-07-11 19:07 | NUR ---
UNABLE TO GIVE HHNTX HEART RATE IS ELEVATED 150. LOWERED FIO2 TO 30%. SATS 100%
--- NOTE | 2017-07-11 19:08 | NUR ---
REPORT GIVEN TO INCOMING ERP DEVELOPER RN, SKYLAR CARTER.
--- NOTE | 2017-07-11 19:30 | NUR ---
REPORT RECEIVED FROM MORNING NURSE, LUTHER, RN. PT IS AWAKE BUT NONVERBAL. EYES DON'T FOLLOW AND PT UNABLE TO FOLLOW COMMANDS. TRACH TO VENT AC 14, FIO2 30, TV 500, PEEP 5. G-TUBE IN LEFT UPPER QUAD BUT NOT IN USE AT THIS TIME DUE TO AWAITING FOR GI CONSULT TO COME AND SEE THE PT. ALL EXTREMITIES RIGID AND CONTRACTURES NOTED. RIGHT IJ WITH TRIPLE LUMEN ALL PATENT AND ASYMPTOMATIC. CVP READING @9. ON LEVOPHED DRIP @ 12 MCG/MIN, CARDIZEM DRIP @ 4MG/HR, AND AMIODARONE DRIP @0.05MG/HR. NOTIFIED DR. NAIK ABOUT THE PARAMETER OF CARDIZEM DRIP TO HOLD SBP LESS 100 SINCE PT'S SBP HAS BEEN HARD TO BE ABOVE 100, AND AMIODARONE MAINTENANCE DRIP IS 18 HRS PER PROTOCOL BUT THE PT CANNOT HAVE MEDS VIA GT AT THIS TIME AND THE HR BEING 140'S-150'S. CLARIFIED WITH DR. BENÍTEZ FOR MEDICATIONS VIA GT THAT ARE SCHEDULED TONIGHT, AND ORDERED TO HOLD ALL MEDS VIA GT UNTIL SEEN BY GI DOCTOR. LOPEZ CATHETER NOTED WITH CONCENTRATED YELLOW URINE ABOUT 5ML AT THIS TIME. CALL LIGHT IN REACH. HOB ELEVATED TO 30 DEGREES. BED KEPT TO THE LOWEST. BILATERAL PADDED S/R UP. WILL CONTINUE TO MONITOR.
--- NOTE | 2017-07-11 19:31 | NUR ---
CARDIZEM DRIP CHANGED TO 5MG/HR ORDERED.
[2017-07-11] MEDS ORDERED: NOREPINEPHRINE 8 MG in NACL 0.9% 250 ML IV PRN (19:45)
[2017-07-11] MEDS ORDERED: DOCUSATE 100 MG/10 ML UDC GT PRN (20:15)
[2017-07-11] MEDS ORDERED: KETOROLAC 30 MG/ML VIAL IVP PRN ×2 (20:15)
[2017-07-11] MEDS ORDERED: KETOROLAC 30 MG/ML VIAL ONE (20:36)
[2017-07-11] MEDS: HYDROCORTISONE NA SUCC 100 MG/2 ML VIAL IV SCH (20:43)
[2017-07-11] MEDS: ATORVASTATIN 20 MG TAB GT SCH (21:00)
--- NOTE | 2017-07-11 21:00 | NUR ---
PT TEMPERATURE NOTED 102.[address] NAIK IN THE UNIT. ORDER RECEIVED TO GIVE TORADOL IV FOR FEVER. COOLING BLANKET APPLIED. COOLING MEASURES APPLIED. WILL CONTINUE TO MONITOR.
[2017-07-11] MEDS: levETIRAcetam 500 MG in NACL 0.9% 100 ML IV SCH (21:37)
[2017-07-11] MEDS ORDERED: levETIRAcetam 100 MG/ML VIAL IV ONE (21:46)
--- NOTE | 2017-07-11 23:00 | NUR ---
TEMP=99.7. CONTINUING WITH COOLING MEASURES. PT CONTINUES TO BE ON LEVOPHED DRIP, CARDIZEM DRIP, AND AMIODARONE DRIPS AT THIS TIME. MONITORING UNDER CONTINUOUS INDUSTRIAL ENERGY ENGINEER. AFIB ON THE MONITOR. FLACC=0. ALL SAFETY PRECAUTIONS IN PLACE. WILL CONTINUE TO MONITOR.
[2017-07-11] MEDS ORDERED: LEVOFLOXACIN 250 MG/D5 PREMIX 50 ML IV SCH (23:35)
--- NOTE | 2017-07-11 23:40 | NUR ---
LEVAQUIN 250MG IV FIRST DOSE ADMINISTERED ORDERED AFTER CLARIFYING THE ORDER WITH ALL AROUND GEAR MACHINE OPERATOR-DR. SCOTT BENNETT TO GIVE NOW.
[2017-07-12] VITALS (106 sets, daily range): BP systolic 84–128; BP diastolic 33–95
--- NOTE | 2017-07-12 | NUR ---
TEMP 98.6 F AT THIS TIME. FLACC 0. CONTINUE WITH LEVOPHED, AMIODARONE, AND CARDIZEM DRIPS ORDERED. MONITORING WITH CONTINUOUS CURING OVEN ATTENDANT AND NO ACUTE DISTRESS NOTE AT THIS TIME. ALL SAFETY PRECAUTIONS ARE IN PLACE. WILL CONTINUE TO MONITOR.
[2017-07-12] MEDS: PIPER/TAZO 3.375GM/D5W PREMIX 50 ML IV SCH ×4 (03:05→20:41)
--- NOTE | 2017-07-12 03:41 | NUR ---
URINE OUTPUT NOTED CLOUDY CONCENTRATED URINE OF ABOUT 10ML FROM THE START OF THE SHIFT. NOTIFIED DR. NAIK ABOUT THE FINDING.
[2017-07-12 05:22] LABS: HEMATOCRIT 27.2 % (36-48); MEAN CORPUSCULAR HEMOGLOBIN 27 pg (27-31); MEAN CORPUSCULAR HGB CONC 33 g/dL (33-37); MEAN CORPUSCULAR VOLUME 82 fL (80-94); PLATELET COUNT (AUTO) 323 K/uL (140-450); RED BLOOD CELL COUNT(AUTO) 3.33 MIL/uL (4.20-5.40)
--- NOTE | 2017-07-12 05:50 | NUR ---
AM CARE PROVIDED. PT CONTINUES TO BE ON CARDIZEM, LEVOPHED, AND AMIODARONE DRIPS AND CONTINUOUS CARDIAC MONITORING. STRICT CONTACT ISOLATION PRECAUTION PRACTICED DURING THE SHIFT. WILL CONTINUE TO MONITOR.
--- NOTE | 2017-07-12 06:00 | NUR ---
DR. ERNST AT BED SIDE. UPDATED PT'S CONDITION INCLUDING URINE OUTPUT OF 10ML DURING THIS SHIFT AND FEVER OF UP TO 102.5 F. WILL FOLLOW UP WITH ANY ORDERS.
[2017-07-12 06:21] LABS: ANION GAP 19.2 (8-16); CARBON DIOXIDE 19.6 mmol/L (21-32); CHLORIDE 109 mmol/L (98-107); CREATININE 3.1 mg/dL (0.6-1.3); GLUCOSE 53 mg/dL (74-106); POTASSIUM 3.8 mmol/L (3.5-5.1); SODIUM SERUM 144 mmol/L (136-145); UREA NITROGEN, BLOOD 39 mg/dL (7-18)
[2017-07-12 06:26] LABS: MAGNESIUM 1.8 mg/dL (1.8-2.4); PHOSPHORUS 4.3 mg/dL (2.5-4.9)
[2017-07-12 06:32] LABS: LYMPHOCYTES % (MANUAL) 5 % (20-46); MONOCYTES % (MANUAL) 5 % (5-12)
[2017-07-12] MEDS: NACL 0.9% 1,000 ML IV SCH ×3 (06:38→20:41)
[2017-07-12] MEDS ORDERED: VANCOMYCIN PER PHARMACY MC PRN (07:05)
[2017-07-12] MEDS ORDERED: NACL 0.9% 1,000 ML IV SCH ×2 (07:05→16:00)
--- NOTE | 2017-07-12 08:00 | NUR ---
INITIAL SHIFT ASSESSMENT DONE. OBTUNDED. ALL EXTREMITIES ARE CONTRACTED. DOES NOT FOLLOW COMMAND. NO SIGNS OF PAIN OR AGITATION NOTED. TOLERATING CURRENT VENTILATOR SETTINGS WELL. O2 SAT 100%. A-FIB ON MONITOR, ON AMIODARONE AND CARDIZEM DRIP. SBP IN 90'S-110'S, ON LEVOPHED DRIP. NO ECTOPY NOTED. HAS BM AT THIS TIME, LARGE AMOUNT, SOFT, AND BROWN COLOR. GIVEN BATH AND LINENS ARE CHANGE. G-TUBE IS ALSO LEAKING. DRESSINGS ON G-TUBE SITE ARE ALSO CHANGE. HOB ELEVATED. UPDATED OF PLAN OF CARE. WILL CONTINUE TO MONITOR.
--- NOTE | 2017-07-12 08:20 | NUR ---
LUTHER/SKYLAR AND RODOLFO AT BEDSIDE FOR PHYSICAL HYGIENE AND REPOSITION Addendum: 07/12/17 at 0840 by Julius Montes RT GRAIN BUYER TO ATTEMPT HHN INLINE, VENTILATOR AND PATIENT ASSESSMENT AT A LATER TIME
[2017-07-12] MEDS ORDERED: VANCOMYCIN 1GM/DEXT 5% PREMIX 200 ML IV SCH (08:30)
[2017-07-12] MEDS: ALBUTEROL SULFATE/IPRATROPIU 3 ML SOL IH SCH ×3 (08:38→19:35)
--- NOTE | 2017-07-12 08:38 | NUR ---
RECEIVED ON A ReturboSCAPE R860 VENTILATOR PLUGGED INTO RED OUTLET TOLERATING WELL TO A ALMAZLEY DCT #4 AIRWAY SECURED WITH A LATOSAH TRACH CUFF PRESSURE CHECKED NOTED AMBU BAG NOTED AT HOB LOC AWAKE BREATH SOUNDS RHONCHI BILATERAL WITH GOOD CHEST RISE DEEP TRACHEAL SUCTION FOR MODERATE THICK YELLOW SECRETIONS AIRWAY
[2017-07-12] MEDS: MULTIVITAMIN 5 ML ORASYR GT SCH (09:00)
[2017-07-12] MEDS: LACTOBACILLUS RHAMNOSUS GG 1 EACH CAP GT SCH (09:00)
[2017-07-12] MEDS: PANTOPRAZOLE 40 MG INJ VIAL IVP SCH (09:12)
[2017-07-12] MEDS: FUROSEMIDE 20 MG/2 ML VIAL IVP SCH (09:12)
[2017-07-12] MEDS: BRIMONIDINE TARTRATE 0.2% OP 5 ML BTL BOTH EYES SCH ×2 (09:13→20:42)
[2017-07-12] MEDS: HYDROCORTISONE NA SUCC 100 MG/2 ML VIAL IV SCH ×2 (09:13→20:40)
--- NOTE | 2017-07-12 09:45 | NUR ---
HOSP 02 SHUT DOWN X 5 MINUTES REPLACED WITH E CYLINDER THEN PLACED BACK ON HOSP 02 NO ILL EFFECTS NOTED
[2017-07-12] MEDS: levETIRAcetam 500 MG in NACL 0.9% 100 ML IV SCH ×2 (09:49→20:41)
--- NOTE | 2017-07-12 10:00 | NUR ---
RESTING IN BED. NO SIGNS OF PAIN OR AGITATION NOTED. TOLERATING VENTILATOR WELL. O2 SAT 100%. A-FIB ON MONITOR. SBP IN 90'S-110'S. NO ECTOPY NOTED. HOB ELEVATED. WILL CONTINUE TO MONITOR.
--- NOTE | 2017-07-12 10:16 | NUR ---
AWAKE NO PULMONARY DISTRESS NOTED BREATH SOUNDS RHONCHI BILATERAL GOD CHEST RISE DEEP TRACHEAL SUCTION FOR SMALL THICK YELLOW SECRETIONS AIRWAY PATENT
--- NOTE | 2017-07-12 10:16 | NUR ---
AWAKE RESTING WELL NO DISTRESS NOTED BREATH SOUNDS RHONCHI BILATERAL WITH GOOD CHEST RISE DEEP TRACHEAL SUCTION FOR MODERATE THICK YELLOW SECRETIONS AIRWAY PATENT
--- NOTE | 2017-07-12 10:34 | NUR ---
UNABLE TO OBTAIN ABG SAMPLE ZERO PULSES AT RADIAL/BRACHIAL SITE RIGHT AND LEFT UPPER EXTREMITIES PATIENT WITH CONTRACTURES CHECKING DEPARTMENT SUPERVISOR TO ATTEMPT AT A LATER TIME Addendum: 07/12/17 at 1037 by Julius Montes RT LUTHER/SKYLAR ALTAMIRANO
--- NOTE | 2017-07-12 11:30 | NUR ---
DR ALMANZA IS IN THE ROOM. UPDATED OF STATUS. D/C THE G-TUBE AND PLACE A DRAIN BAG. TOLERATED THE PROCEDURE WELL. NEW ORDERS RECEIVE.
[2017-07-12] MEDS ORDERED: DOCUSATE 100 MG/10 ML UDC GT PRN (11:39)
[2017-07-12] MEDS: NACL 0.9% IV SCH (11:56)
[2017-07-12] MEDS: DILTIAZEM IV SCH (11:56)
[2017-07-12] MEDS: NOREPINEPHRINE 8 MG in NACL 0.9% 250 ML IV PRN (11:58)
[2017-07-12] MEDS: AMIODARONE 450 MG in DEXTROSE 5% 250 ML IV SCH (11:58)
--- NOTE | 2017-07-12 12:00 | NUR ---
REASSESSMENT DONE. NEURO STATUS UNCHANGED. NO SIGNS OF PAIN OR AGITATION NOTED. TOLERATING CURRENT VENTILATOR SETTINGS WELL. O2 SAT 100%. A-FIB ON MONITOR. SBP IN 100'S-120'S. NO ECTOPY NOTED. HOB ELEVATED. UPDATED OF PLAN OF CARE. WILL CONTINUE TO MONITOR.
--- NOTE | 2017-07-12 13:00 | NUR ---
HR IN 100'S, CARDIZEM DRIP DECREASE TO 4 MG/HR. SBP IN 100'S-110'S. LEVOPHED DRIP DECREASE TO 11 MCG/MIN. WILL CONTINUE TO MONITOR.
[2017-07-12] MEDS: METOCLOPRAMIDE 10 MG/2 ML INJ VIAL IVP SCH ×2 (13:01→20:40)
--- NOTE | 2017-07-12 13:22 | NUR ---
07/12/17 RD FOLLOW UP COMPLETED PLEASE REFER TO NUTRITION PROGRESS NOTE UNDER CARE ACTIVITY FOR ESTIMATED NUTRITION NEEDS. 1. WHEN MEDICALLY APPROPRIATE, RESUME NUTRITION SUPPORT FIBERSOURCE AT 55 ML/HR WITH 45 ML FREE WATER FLUSH Q3H TOLERATED 2. IF PT TOLERATES ABOVE TUBE FEEDING AT GOAL, CONSIDER INCREASING TO 65 ML/HR TO PROVIDE 1560 ML TOTAL VOLUME, 1872 KCAL AND 84 GM PROTEIN TO MEET 100% OF ESTIMATED KCAL AND PROTEIN NEEDS. 3. RD TO FOLLOW-UP 2-3 DAYS, HIGH RISK LALIT NARAYANAN RD
--- NOTE | 2017-07-12 14:00 | NUR ---
RESTING IN BED. NO SIGNS OF PAIN OR AGITATION NOTED. TOLERATING VENTILATOR WELL. O2 SAT 100%. A-FIB ON MONITOR. SBP IN 90'S-110'S. NO ECTOPY NOTED. HOB ELEVATED. RT IS IN THE ROOM DRAWING BLOOD FOR ABG. WILL CONTINUE TO MONITOR.
--- NOTE | 2017-07-12 14:20 | NUR ---
ABG DONE BY Mateus ARAIZA TOLERATED WELL NO ADVERSE REACTIONS NOTED
--- NOTE | 2017-07-12 14:21 | NUR ---
AWAKE STABLE NO RESPIRATORY DISTRESS NOTED BREATH SOUNDS RHONCHI BILATERAL WITH GOOD CHEST RISE DEEP TRACHEAL SUCTION FOR SMALL THIN YELLOW SECRETIONS AIRWAY PATENT
--- NOTE | 2017-07-12 14:30 | NUR ---
PAGED DR. SHELLEY POSEY TO [phone] TO REVIEW ABG SAMPLE REPORT GAVE REPORT TO LUTHER/SKYLAR TO READ BACK RESULTS TO
--- NOTE | 2017-07-12 14:47 | NUR ---
DR POSEY CALL BACK THE UNIT AT THIS TIME. UPDATED OF ABG RESULTS. NO NEW ORDER RECEIVE.
--- NOTE | 2017-07-12 15:00 | NUR ---
INSERTED A 16F NGT ON LEFT NARES AT THIS TIME PER DR ALMANZA'S ORDER. PLACEMENT IS CHECK BY OTHER RN, SKYLAR PETTIT. NGT IS THEN TAPE TO THE NOSE AND CONNECTED TO LIWS. TOLERATED THE PROCEDURE WELL.
--- NOTE | 2017-07-12 15:20 | NUR ---
DR POSEY IS IN THE ROOM. UPDATED OF STATUS. NEW ORDER RECEIVE. GIVEN NS 1 LITER IV BOLUS PER DR POSEY'S ORDER. WILL CONTINUE TO MONITOR.
--- NOTE | 2017-07-12 15:42 | NUR ---
CM NOTE CONCURRENT REVIEW FAXED TO [facility] / FAX# [phone], C: [phone].
--- NOTE | 2017-07-12 16:00 | NUR ---
REASSESSMENT DONE. NEURO STATUS STILL THE SAME. NO SIGNS OF PAIN OR AGITATION NOTED. TOLERATING CURRENT VENTILATOR SETTINGS WELL. O2 SAT 100%. A-FIB ON MONITOR. SBP IN 87-110'S. LEVOPHED DRIP DECREASE TO 10 MCG/MIN. HOB ELEVATED. UPDATED OF PLAN OF CARE. WILL CONTINUE TO MONITOR.
--- NOTE | 2017-07-12 16:01 | NUR ---
AWAKE STABLE NO EVIDENCE OF RESPIRATORY DISTRESS NOTED BREATH SOUNDS RHONCHI BILATERAL GOOD CHEST RISE DEEP TRACHEAL SUCTION FOR SMALL THIN YELLOW SECRETIONS AIRWAY PATENT
--- NOTE | 2017-07-12 17:00 | NUR ---
GIVEN BATH AND LINENS ARE CHANGE. TOLERATED THE PROCEDURE FAIRLY.
--- NOTE | 2017-07-12 17:33 | NUR ---
AWAKE NO SOB NOTED BREATH SOUNDS RHONCHI BILATERAL WITH GOOD CHEST RISE DEEP TRACHEAL SUCTION FOR SMALL THIN YELLOW SECRETIONS AIRWAY PATENT
--- NOTE | 2017-07-12 17:45 | NUR ---
REPLACED INNER CANNULA FROM NEW KIT CLEANED OLD INNER CANNULA USING A TRACH CARE KIT PLACED IN BIO HAZARD BAG
--- NOTE | 2017-07-12 18:00 | NUR ---
RESTING IN BED. NO SIGNS OF PAIN OR AGITATION NOTED. TOLERATING VENTILATOR WELL. O2 SAT 97-100%. A-FIB ON MONITOR. SBP IN 88-120'S. NO ECTOPY NOTED. HOB ELEVATED. WILL CONTINUE TO MONITOR.
[2017-07-12] MEDS ORDERED: NACL 0.9% 1,000 ML IV ONE (18:25)
--- NOTE | 2017-07-12 19:25 | NUR ---
REPORT GIVEN TO INCOMING CONTROL OPERATOR RN, RN RADHA.
--- NOTE | 2017-07-12 19:30 | NUR ---
RECEIVED PT FROM AM SHIFT. PT IS TRACH TO VENT. VENT SETTING AC 14 TV 500 FIO2 30% AND PEEP 5 TOLERATING WELL.PT OPEN EYES,NOT FOLLOW COMMANDS. A FIB ON MONITOR. BILATERAL LUNGS SOUND CRACKLES.CENTRAL LINE TO RIGHT INTERNAL JUGULAR TRIPLE LUMENS. INTACT WELL WITH GOOD BLOOD RETURN NOTED. IV NS 0.9 AT 150 ML/HR. CVP IN PLACE.PT CONTINUE ON AMIDORANE O.5 MG/HR ,NOR EPINEPHRINE AT 10 MCG/MIN AND DILTIAZEM AT 4 MG/HR. BUE EDEMA NON PITTING +2. NGT TO LEFT NARES CONNECT TO SUCTION MACHINE WITH DARK COLOR DRAINAGE NOTED.GT WAS PULLED OUT BY MD PER REPORT. OPEN WOUND TO LEFT ABD SIDE POST GT SITE.DARK BROWN SECRETION NOTED.DRAIN BAG TO POST GT STOMA AREA.BUE AND BLE RIGID AND CONTRACTURE.F/C IN PLACE WITH CLOUDY YELLOW URINE.KEPT CLEAN AND DRY.
[2017-07-12] MEDS ORDERED: levETIRAcetam 100 MG/ML VIAL IV ONE (20:08)
[2017-07-12] MEDS: POLYETHYLENE GLYCOL 17 GM/PKT PO SCH (20:42)
[2017-07-12] MEDS: ATORVASTATIN 20 MG TAB GT SCH (20:43)
[2017-07-12] MEDS ORDERED: AZTREONAM 1,000 MG in DEXTROSE 5% 50 ML IV SCH (21:30)
--- NOTE | 2017-07-12 21:45 | NUR ---
NIGHT MEDS GIVEN TOLERATING WELL.
--- NOTE | 2017-07-12 22:00 | NUR ---
COME TO SEE PT WITH NEW ORDER TO D/C ZOSYN Q 6HRS CHANGE TO Q 8 HRS AND D/C VANCOMYCIN AND LEVAQUIN. NEW ORDER OF AZTREONAM 1 GR FOR FIST DOSE AND AFTER TO GIVE AT 500 MG Q 12 HORS. ORDER WAS ENTERED BY .
--- NOTE | 2017-07-12 23:42 | NUR ---
FIRST DOSE OF AZTREONAM 1 GR GIVEN ALAYNA WELL AT THIS TIME.CONT TO MONITOR.
[2017-07-13] VITALS (106 sets, daily range): BP systolic 74–164; BP diastolic 22–95
--- NOTE | 2017-07-13 00:30 | NUR ---
REPOSITION PT FOR COMFORT.KEPT CLEAN AND DRY.N FEVER NOTED T.98.2.
[2017-07-13] MEDS ORDERED: AMIODARONE 450 MG/9 ML VIAL IV ONE (01:00)
[2017-07-13] MEDS ORDERED: NOREPINEPHRINE 4 MG/4 ML VIAL IV ONE (01:01)
[2017-07-13] MEDS: NOREPINEPHRINE 8 MG in NACL 0.9% 250 ML IV PRN (02:10)
--- NOTE | 2017-07-13 02:10 | NUR ---
INCREASE TH LEVOPHED FROM 10 CG/MIN TO 15 MCG/MIN D/T BP DROP 91/40TOLERATED WELL
[2017-07-13] MEDS: AMIODARONE 450 MG in DEXTROSE 5% 250 ML IV SCH ×2 (02:42→19:47)
--- NOTE | 2017-07-13 04:00 | NUR ---
AM CARE,SPONGE BATH,F/C CARE AND ORAL CARE GIVEN TOLERATED WELL, [address] CHARLINE NAIK MADE AWARE.
[2017-07-13] MEDS: NACL 0.9% 1,000 ML IV SCH ×3 (05:13→17:22)
[2017-07-13] MEDS: PIPER/TAZO 3.375GM/D5W PREMIX 50 ML IV SCH ×3 (05:14→20:36)
[2017-07-13] MEDS: METOCLOPRAMIDE 10 MG/2 ML INJ VIAL IVP SCH ×3 (05:14→20:35)
[2017-07-13 05:22] LABS: HEMOGLOBIN 9.3 g/dL (12.0-16.0); MEAN CORPUSCULAR HEMOGLOBIN 27 pg (27-31); MEAN CORPUSCULAR HGB CONC 33 g/dL (33-37); MEAN CORPUSCULAR VOLUME 82 fL (80-94); PLATELET COUNT (AUTO) 351 K/uL (140-450); RED BLOOD CELL COUNT(AUTO) 3.44 MIL/uL (4.20-5.40); RED CELL DISTRIBUTION WIDTH 18.5 % (11.6-13.7); WHITE BLOOD COUNT (AUTO) 26.7 K/uL (4.8-10.8)
--- NOTE | 2017-07-13 06:00 | NUR ---
AM MEDS GIVEN TOLERATED WELL.
[2017-07-13] MEDS: ALBUTEROL SULFATE/IPRATROPIU 3 ML SOL IH SCH ×3 (06:44→19:05)
--- NOTE | 2017-07-13 06:52 | NUR ---
RECEIVED TRACH PT WITH SHILEY 4 DCT TRACH ON VENT. SETTINGS AC 14, VT 500, PEEP 5 AND FIO2 30%. PT SUCTIONED OBTAINED SMALL AMOUNT OF THICK YELLOW SECRETIONS, TRACH IS SECURE WITH A PATENT AIRWAY. PT OPENS HER EYES BUT IS NOT ALERT. VENT IS PLUGGED INTO A RED OUTLET WITH ALARMS ON AND FUNCTIONING.AMBU BAG IS PRESENT AT BEDSIDE. WILL CONTINUE TO MONITOR.
[2017-07-13 07:15] LABS: LYMPHOCYTES % (MANUAL) 6 % (20-46); MONOCYTES % (MANUAL) 5 % (5-12)
--- NOTE | 2017-07-13 07:15 | NUR ---
REPORT GIVEN TO LUTHER CHENG. PT IS CONTINUE ON CLOSED MONITOR.
[2017-07-13 07:28] LABS: CARBON DIOXIDE 16.8 mmol/L (21-32); CHLORIDE 110 mmol/L (98-107); CREATININE 3.5 mg/dL (0.6-1.3); GLUCOSE 88 mg/dL (74-106); POTASSIUM 3.8 mmol/L (3.5-5.1); SODIUM SERUM 143 mmol/L (136-145); UREA NITROGEN, BLOOD 45 mg/dL (7-18)
[2017-07-13 07:29] LABS: MAGNESIUM 1.9 mg/dL (1.8-2.4); PHOSPHORUS 4.8 mg/dL (2.5-4.9)
[2017-07-13 07:31] LABS: ALBUMIN 1.1 g/dL (3.4-5.0); BILIRUBIN,DIRECT 2.8 mg/dL (0.0-0.3); TOTAL BILIRUBIN 3.2 mg/dL (0.0-1.0)
--- NOTE | 2017-07-13 08:00 | NUR ---
INITIAL SHIFT ASSESSMENT DONE. DROWSY AND OBTUNDED. DOES NOT FOLLOW ANY COMMAND. ALL EXTREMITIES ARE CONTRACTED. NO SIGNS OF PAIN OR AGITATION NOTED. ON VENTILATOR VIA TRACH, TOLERATING CURRENT SETTINGS WELL. O2 SAT 100%. A-FIB ON MONITOR, ON AMIODARONE AND CARDIZEM DRIP. SBP IN 90'S-120'S, LEVOPHED DRIP DECREASE TO 14 MCG/MIN. NO ECTOPY NOTED. HOB ELEVATED. NGT TO LIWS. DRAIN BAG ON LEAKING G-TUBE SITE INTACT. FC PATENT, INTACT, AND DRAINING SMALL AMOUNT OF URINE, MD AWARE. UPDATED OF PLAN OF CARE. WILL CONTINUE TO MONITOR.
[2017-07-13] MEDS ORDERED: NACL 0.9% 1,000 ML IV SCH (08:05)
[2017-07-13] MEDS: HYDROCORTISONE NA SUCC 100 MG/2 ML VIAL IV SCH (08:58)
[2017-07-13] MEDS: MULTIVITAMIN 5 ML ORASYR GT SCH (08:58)
[2017-07-13] MEDS: BRIMONIDINE TARTRATE 0.2% OP 5 ML BTL BOTH EYES SCH ×2 (08:58→20:32)
[2017-07-13] MEDS: POLYETHYLENE GLYCOL 17 GM/PKT PO SCH ×2 (08:58→20:33)
[2017-07-13] MEDS: PANTOPRAZOLE 40 MG INJ VIAL IVP SCH (08:59)
[2017-07-13] MEDS: FUROSEMIDE 20 MG/2 ML VIAL IVP SCH (08:59)
[2017-07-13] MEDS: AZTREONAM 500 MG in DEXTROSE 5% 50 ML IV SCH ×2 (08:59→20:34)
[2017-07-13] MEDS: levETIRAcetam 500 MG in NACL 0.9% 100 ML IV SCH ×2 (08:59→20:33)
[2017-07-13] MEDS ORDERED: LEVOFLOXACIN 250 MG/D5 PREMIX 50 ML IV SCH (09:00)
[2017-07-13] MEDS ORDERED: FUROSEMIDE 20 MG/2 ML VIAL IVP SCH (09:00)
[2017-07-13] MEDS: LACTOBACILLUS RHAMNOSUS GG 1 EACH CAP GT SCH (09:01)
--- NOTE | 2017-07-13 09:37 | NUR ---
FAXED CONCURRENT REVIEW TO [facility] [phone] PHONE [phone]
--- NOTE | 2017-07-13 09:58 | NUR ---
PT SUCTIONED OBTAINED SMALL AMOUNT OF THICK YELLOW SECRETIONS, AIRWAY IS PATENT AND TRACH REMAINS SECURE. WILL CONTINUE TO MONITOR.
--- NOTE | 2017-07-13 10:00 | NUR ---
RESTING IN BED. NO SIGNS OF PAIN OR AGITATION NOTED. TOLERATING VENTILATOR WELL. O2 SAT 100%. A-FIB ON MONITOR. SBP IN 100-120'S. NO ECTOPY NOTED. HOB ELEVATED. WILL CONTINUE TO MONITOR.
[2017-07-13] MEDS: DILTIAZEM IV SCH ×2 (10:30→19:50)
[2017-07-13] MEDS: NACL 0.9% IV SCH ×2 (10:30→19:50)
--- NOTE | 2017-07-13 10:30 | NUR ---
[facility] [employer] AGENT RHYS CALL THE UNIT AT THIS TIME. UPDATED OF STATUS. JITENDRA JOINER STATED THAT PATIENT WILL NOT BE TRANSFER TO [facility] D/T HIGH DOSE OF LEVOPHED DRIP.
--- NOTE | 2017-07-13 11:00 | NUR ---
SBP IN 90'S-110'S. LEVOPHED DRIP DECREASE TO 13 MCG/MIN. WILL CONTINUE TO MONITOR.
--- NOTE | 2017-07-13 12:00 | NUR ---
REASSESSMENT DONE. NEURO STATUS UNCHANGED. NO SIGNS OF PAIN OR AGITATION NOTED. TOLERATING CURRENT VENTILATOR SETTINGS WELL. O2 SAT 100%. A-FIB ON MONITOR. SBP IN 90'S-110'S. NO ECTOPY NOTED. HOB ELEVATED. UPDATED OF PLAN OF CARE. WILL CONTINUE TO MONITOR.
[2017-07-13] MEDS: NOREPINEPHRINE 8 MG in DEXTROSE 5% 250 ML IV PRN (12:08)
--- NOTE | 2017-07-13 13:35 | NUR ---
DR POSEY IS IN THE ROOM. UPDATED OF STATUS. SBP IN 100'S-110'S. RADIOLOGY TECHNICIAN ANA ROSA TITRATED THE LEVOPHED TO 8 MCG/MIN PER DR POSEY'S ORDER. WILL CONTINUE TO MONITOR.
--- NOTE | 2017-07-13 14:00 | NUR ---
RESTING IN BED. NO SIGNS OF PAIN OR AGITATION. TOLERATING VENTILATOR WELL. O2 SAT 100%. A-FIB ON MONITOR. SBP IN 90'S-100'S. NO ECTOPY NOTED. HOB ELEVATED. WILL CONTINUE TO MONITOR.
--- NOTE | 2017-07-13 14:15 | NUR ---
DR ERNST INSERTED A 20F G-TUBE ON THE OLD G-TUBE SITE PER DR ALMANZA'S ORDER. TOLERATED THE PROCEDURE WELL.
--- NOTE | 2017-07-13 14:43 | NUR ---
XRAY TECHS ARE IN THE ROOM DOING XRAY OF THE ABDOMEN WITH GASTRO-GRAFFIN.
[2017-07-13] MEDS ORDERED: FLUCONAZOLE 200 MG/NS PREMIX 100 ML IV SCH (15:00)
--- NOTE | 2017-07-13 15:02 | NUR ---
PT SUCTIONED OBTAINED SMALL AMOUNT OF THICK SECRETIONS. AIRWAY IS PATENT. TRACH REMAINS SECURE WITH VENT ALARMS ON AND FUNCTIONING.
--- NOTE | 2017-07-13 15:30 | NUR ---
DR CASTELLON IS IN THE ROOM. UPDATED OF STATUS. NEW ORDERS RECEIVE.
[2017-07-13] MEDS ORDERED: FUROSEMIDE 100 MG/10 ML VIAL IV SCH (15:45)
--- NOTE | 2017-07-13 15:45 | NUR ---
DR ERNST IS HERE IN THE UNIT. UPDATED OF LEAKING G-TUBE SITE. STATED TO NOT START THE TUBE FEEDING. STATED THAT SHE WILL CALL DR ALMANZA.
[2017-07-13] MEDS ORDERED: ALBUMIN HUMAN 25% 50 ML IV SCH (16:00)
--- NOTE | 2017-07-13 16:00 | NUR ---
REASSESSMENT DONE. NEURO STATUS STILL THE SAME. NO SIGNS OF PAIN OR AGITATION NOTED. TOLERATING CURRENT VENTILATOR SETTINGS WELL. O2 SAT 100%. A-FIB ON MONITOR. SBP IN 90'S-100'S. NO ECTOPY NOTED. HOB ELEVATED. UPDATED OF PLAN OF CARE. WILL CONTINUE TO MONITOR.
--- NOTE | 2017-07-13 17:00 | NUR ---
SBP IN 90'S-100'S. HR IN 70'S. CARDIZEM DRIP DECREASE TO 3 MG/HR. WILL CONTINUE TO MONITOR.
--- NOTE | 2017-07-13 17:30 | NUR ---
SBP IN 100'S. HR IN LOW 70'S. CARDIZEM DRIP DECREASE TO 2 MG/HR. WILL CONTINUE TO MONITOR.
--- NOTE | 2017-07-13 18:07 | NUR ---
PT REMAINS ON DOCUMENTED SETTINGS NO CHANGES MADE AT THIS TIME. PT SUCTIONED OBTAINED MODERATE AMOUNT OF THICK SECRETIONS. AIRWAY IS PATENT. VENT ALARMS REMAIN ON AND FUNCTIONING.
--- NOTE | 2017-07-13 18:30 | NUR ---
G-TUBE REMOVE PER DR CERVANTES, TIP INTACT. COLOSTOMY DRAIN IS THEN PLACE PER MD ORDER. TOLERATED THE PROCEDURE WELL.
--- NOTE | 2017-07-13 19:15 | NUR ---
REPORT GIVEN TO INCOMING CONTINUOUS MINING MACHINE LODE MINER RN, RN RADHA.
--- NOTE | 2017-07-13 19:30 | NUR ---
RECEIVED PT FROM AM SHIFT. PT IS STUPOR,OPEN EYES,ONLY RESPOND TO PAIN STIMULI. CONT ON TRACH TO VENT WITH VENT SETTING AC 14 TV 500 FIO2 30% PEEP 5 WITH SPO2 99%. BILATERAL LUNGS CRACKLES. HOB UP 30-45 DEGREE. VAP ORAL CARE GIVEN.CONTINUE ON SECOND SHIFT SUPERVISOR WITH A.FIB SHOW IN MONITOR.GENERALIZED EDEMA. EDEMA TO BUE/BLE +2,ELEVATED AREA WITH PILLOWS. SKIN DRY WARM TO TOUCH. CENTRAL LINE TO RIGHT INTERNAL JUGULAR TRIPLE LUMENS. INTACT WELL.CONT ON IV FLUIDS NS AT 150 C/HR. CONT ON DRIPS CARDIZEM AT 2MG/HR,LEVOPHED 8MCG/MIN AND AMIDORANE AT 0.5 MG/HR TOLERATED WELL. CONT ON IV ABT ORDER. ABD ROUND SOFT NON TENDER. POSITIVE BOWEL SOUND TO ALL QUADRANTS. NGT TO LEFT NARES CONNECT TO LOW INTERMITTENT SUCTION. WITH SMALL DARK GREEN SECRETIONS. OPEN WOUND TO LEFT UPPER ABD OLD GT SITE. AREA COVER WITH DRAINAGE BAG WITH MODERATE GREENISH DRAINAGE FROM THE SITE.CONTRACTURE TO BUE/BLE. F/C IN PLACE WITH SMALL URINE DARK SURENDRA COLOR.GENTLE CARE GIVEN.KEPT CLEAN AND DRY.
--- NOTE | 2017-07-13 20:30 | NUR ---
COME TO SEE PT,NO NEW ORDER AT THIS TIME.
[2017-07-13] MEDS: ATORVASTATIN 20 MG TAB GT SCH (20:33)
[2017-07-13] MEDS: ALBUMIN HUMAN 25% 50 ML IV SCH (20:35)
--- NOTE | 2017-07-13 21:30 | NUR ---
PM MEDS GIVEN TOLERATED WELL.CONT ON IV ABT ORDER.
--- NOTE | 2017-07-13 23:10 | NUR ---
PT HAS SMALL BM,SOFT YELLOW COLOR.GOOD PERIANAL/PERINEAL CARE GIVEN.
[2017-07-14] VITALS (85 sets, daily range): BP systolic 94–139; BP diastolic 43–81
--- NOTE | 2017-07-14 00:10 | NUR ---
NOTED PT WITH EPISODE OF APNEA SUCTION GIVEN PRN TO KEPT AIR WAY CLEAR ALAYNA WELL. HOB UP 45 DEGREE,REPOSITION FOR COMFORT. SPO2 100 % .RESP 17X/MINUTES. CONT TO MONITOR CLOSELY.
--- NOTE | 2017-07-14 02:00 | NUR ---
PT OPEN EYES,RESPOND TO PAIN STIMULI ONLY,NO SOB NOTED.CONTINUE TO MONITOR CLOSELY
[2017-07-14] MEDS: NACL 0.9% 1,000 ML IV SCH ×4 (03:02→14:22)
[2017-07-14] MEDS: NOREPINEPHRINE 8 MG in DEXTROSE 5% 250 ML IV PRN (03:07)
--- NOTE | 2017-07-14 04:00 | NUR ---
AM CARE , SPONGE BATH ,VAP ORAL CARE AND F/C CARE GIVEN ALAYNA WELL.
--- NOTE | 2017-07-14 04:50 | NUR ---
BLOOD DRAWN FROM CVP LINE GOOD BLOOD RETURN. COME TO SEE PT.NO NEW ORDER AT THIS TIME.
[2017-07-14] MEDS: METOCLOPRAMIDE 10 MG/2 ML INJ VIAL IVP SCH ×2 (05:09→13:09)
[2017-07-14] MEDS: PIPER/TAZO 3.375GM/D5W PREMIX 50 ML IV SCH ×2 (05:09→13:09)
--- NOTE | 2017-07-14 05:11 | NUR ---
IVF NS STILL RUNNING AT 150 CC/HR,NOT HANG NEW BAG AT THIS TIME D/T STILL REMINNING 500CC IN THE BAG.
[2017-07-14 05:52] LABS: HEMATOCRIT 26.3 % (36-48); HEMOGLOBIN 8.5 g/dL (12.0-16.0); MEAN CORPUSCULAR HEMOGLOBIN 27 pg (27-31); MEAN CORPUSCULAR HGB CONC 32 g/dL (33-37); MEAN CORPUSCULAR VOLUME 83 fL (80-94); PLATELET COUNT (AUTO) 319 K/uL (140-450); RED BLOOD CELL COUNT(AUTO) 3.18 MIL/uL (4.20-5.40); RED CELL DISTRIBUTION WIDTH 18.8 % (11.6-13.7); WHITE BLOOD COUNT (AUTO) 25.1 K/uL (4.8-10.8)
[2017-07-14 06:15] LABS: CREATININE 3.8 mg/dL (0.6-1.3); GLUCOSE 143 mg/dL (74-106); UREA NITROGEN, BLOOD 49 mg/dL (7-18)
[2017-07-14 06:19] LABS: MAGNESIUM 1.8 mg/dL (1.8-2.4)
[2017-07-14 06:20] LABS: EOSINOPHILS % (MANUAL) 2 % (0-4); LYMPHOCYTES % (MANUAL) 9 % (20-46); MONOCYTES % (MANUAL) 3 % (5-12)
[2017-07-14 06:23] LABS: ANION GAP 20.3 (8-16); CARBON DIOXIDE 17.5 mmol/L (21-32); CHLORIDE 108 mmol/L (98-107); POTASSIUM 3.8 mmol/L (3.5-5.1); SODIUM SERUM 142 mmol/L (136-145)
[2017-07-14] MEDS: ALBUTEROL SULFATE/IPRATROPIU 3 ML SOL IH SCH ×3 (06:44→19:08)
--- NOTE | 2017-07-14 06:44 | NUR ---
rec'd pt on carescape vent settings ac 14 vt 500 peep5 fio2 30% alarms on and functioning properly, ambu bag is at side of vent and vent is plugged into red outlet , i\l tx given with duoneb 3ml with no adverse reaction post tx b\s are coarse bilaterally, sxn pt small amt of yellow secretions, pt is trach with shiley dct 4 and cuff pressure is 26 cm h20 pt is resting with no signs of distress noted at this time
--- NOTE | 2017-07-14 07:15 | NUR ---
REPORT GIVEN TO LUTHER CHENG AM SHIFT. PT CONT ON TRACH TO VENT NO S/S OF DISTRESS.
--- NOTE | 2017-07-14 08:00 | NUR ---
INITIAL SHIFT ASSESSMENT DONE (SEE ASSESSMENT PART). OBTUNDED, DOES NOT FOLLOW ANY COMMANDS. ALL EXTREMITIES ARE CONTRACTED. NO SIGNS OF PAIN OR AGITATION NOTED. TRACH TO VENT, TOLERATING CURRENT SETTINGS WELL. O2 SAT 99-100%. A-FIB ON MONITOR. SBP IN 110'S. NO ECTOPY NOTED. HOB ELEVATED. UPDATED OF PLAN OF CARE. WILL CONTINUE TO MONITOR.
[2017-07-14] MEDS: ALBUMIN HUMAN 25% 50 ML IV SCH (08:12)
[2017-07-14] MEDS: BRIMONIDINE TARTRATE 0.2% OP 5 ML BTL BOTH EYES SCH (08:12)
[2017-07-14] MEDS: PANTOPRAZOLE 40 MG INJ VIAL IVP SCH (08:12)
[2017-07-14] MEDS: LACTOBACILLUS RHAMNOSUS GG 1 EACH CAP GT SCH (08:55)
[2017-07-14] MEDS: MULTIVITAMIN 5 ML ORASYR GT SCH (08:55)
--- NOTE | 2017-07-14 08:55 | NUR ---
VENT CHECK, NO SXN REQUIRED AT THIS TIME AIRWAY IS PATENT AND PT IS SLEEPING
[2017-07-14] MEDS ORDERED: CLINICAL MONITORING MC SCH (09:00)
[2017-07-14] MEDS: POLYETHYLENE GLYCOL 17 GM/PKT PO SCH (09:00)
[2017-07-14] MEDS: levETIRAcetam 500 MG in NACL 0.9% 100 ML IV SCH (09:50)
--- NOTE | 2017-07-14 10:00 | NUR ---
RESTING IN BED. NO SIGNS OF PAIN OR AGITATION NOTED. TOLERATING VENTILATOR WELL. O2 SAT 98-100%. A-FIB ON MONITOR. SBP IN 100'S-120'S. NO ECTOPY NOTED. HOB ELEVATED. WILL CONTINUE TO MONITOR.
--- NOTE | 2017-07-14 10:15 | NUR ---
DR POSEY IS IN THE ROOM. MD UPDATED OF STATUS. LEVOPHED DRIP DECREASE TO 4 MCG/MIN PER MD. SBP IN 120'S. WILL CONTINUE TO MONITOR.
[2017-07-14] MEDS: AZTREONAM 500 MG in DEXTROSE 5% 50 ML IV SCH (10:40)
--- NOTE | 2017-07-14 10:47 | NUR ---
HR IN 60'S-70'S, A-FIB. CARDIZEM DRIP TURN OFF. WILL CONTINUE TO MONITOR.
[2017-07-14] MEDS ORDERED: FLUCONAZOLE 100 MG/NS PREMIX 50 ML IV SCH (11:00)
[2017-07-14] MEDS: AMIODARONE 450 MG in DEXTROSE 5% 250 ML IV SCH (11:19)
--- NOTE | 2017-07-14 11:25 | NUR ---
vent check, sxn pt small amt of yellow secretions, pt is resting
--- NOTE | 2017-07-14 12:00 | NUR ---
REASSESSMENT DONE. NEURO STATUS UNCHANGED. NO SIGNS OF PAIN OR AGITATION NOTED. TOLERATING CURRENT VENTILATOR SETTINGS WELL. O2 SAT 97-100%. A-FIB ON MONITOR. SBP IN 100'S-110'S. NO ECTOPY NOTED. HOB ELEVATED. UPDATED OF PLAN OF CARE. WILL CONTINUE TO MONITOR.
--- NOTE | 2017-07-14 12:15 | NUR ---
DR ALMANZA IS IN THE ROOM. REINSERTED A 22F G-TUBE. TOLERATED THE PROCEDURE WELL. NEW ORDERS RECEIVE.
--- NOTE | 2017-07-14 12:45 | NUR ---
[facility] [employer] MANAGER YISEL CALL THE UNIT AT THIS TIME, UPDATED OF STATUS. JITENDRA MORILLO STATED THAT THE [facility] ACCEPTED THE PATIENT TO TRANSFER TO THEIR FACILITY. JITENDRA MORILLO STATED THAT SHE WILL CALL BACK FOR THE ROOM NUMBER AND [facility] FACILITY THAT WILL ACCEPT.
--- NOTE | 2017-07-14 13:00 | NUR ---
vent check sxn pt small amt of yellow secretions airway is patent trach care done: changed trach gauze and pt is resting
--- NOTE | 2017-07-14 13:07 | NUR ---
VENT CHECK, NO SXN REQUIRED AT THIS TIME AIRWAY IS PATENT AND PT IS SLEEPING NO HHN GIVEN NO SIGNS OF DISTRESS NOTED AT THIS TIME
--- NOTE | 2017-07-14 14:00 | NUR ---
RESTING IN BED. NO SIGNS OF PAIN OR AGITATION NOTED. TOLERATING VENTILATOR WELL. O2 SAT 96-99%. A-FIB ON MONITOR. SBP IN 90'S-110'S. NO ECTOPY NOTED. HOB ELEVATED. WILL CONTINUE TO MONITOR.
[2017-07-14] MEDS ORDERED: HEPA500056 SUBQ (15:06)
[2017-07-14] MEDS ORDERED: IPRA3AMP IH (15:06)
[2017-07-14] MEDS ORDERED: LACT10CA GT (15:06)
[2017-07-14] MEDS ORDERED: NORE4PLA IV (15:21)
[2017-07-14] MEDS ORDERED: [UNRECOGNIZED DRUG - CODE] IJ (15:25)
[2017-07-14] MEDS ORDERED: [UNRECOGNIZED DRUG - CODE] IV (15:33)
[2017-07-14] MEDS ORDERED: [UNRECOGNIZED DRUG - CODE] IV (15:34)
[2017-07-14] MEDS ORDERED: KEP500I IV (15:37)
--- NOTE | 2017-07-14 15:40 | NUR ---
NGT D/C AT THIS TIME PER DR ALMANZA'S ORDER, TIP INTACT. TOLERATED THE PROCEDURE WELL.
[2017-07-14] MEDS ORDERED: [UNRECOGNIZED DRUG - CODE] IV (15:41)
[2017-07-14] MEDS ORDERED: PIPE1SOL IV (15:43)
--- NOTE | 2017-07-14 16:00 | NUR ---
REASSESSMENT DONE. NEURO STATUS STILL THE SAME. NO SIGNS OF PAIN OR AGITATION NOTED. TOLERATING CURRENT VENTILATOR SETTINGS WELL. O2 SAT 97-99%. A-FIB ON MONITOR. SBP IN 90'S-110'S. NO ECTOPY NOTED. HOB ELEVATED. UPDATED OF PLAN OF CARE. WILL CONTINUE TO MONITOR.
--- NOTE | 2017-07-14 16:49 | NUR ---
VENT CHECK, SXN PT SMALL AMT OF YELLOW SECRETIONS PT IS RESTING
--- NOTE | 2017-07-14 18:00 | NUR ---
RESTING IN BED. NO SIGNS OF PAIN OR AGITATION NOTED. TOLERATING VENTILATOR WELL. O2 SAT 97-100%. A-FIB ON MONITOR. SBP IN 100'S-110'S. NO ECTOPY NOTED. HOB ELEVATED. WILL CONTINUE TO MONITOR.
--- NOTE | 2017-07-14 18:30 | NUR ---
REPORT GIVEN TO [facility] ICU PATIENT COORDINATOR CJ.
--- NOTE | 2017-07-14 19:10 | NUR ---
REPORT GIVEN TO INCOMING STRINGING MACHINE TENDER RN, RN HILARIA.
--- NOTE | 2017-07-14 19:18 | NUR ---
RECEIVED PT STABLE ON VENT SUPPORT AT DOCUMENTED SETTINGS, SXN'D SMALL THICK BRUNER SECRETIONS, HHN TX GIVEN, TOLERATED WELL, NO RESP DISTRESS OR SOB NOTED AT THIS TIME, GIANCARLO 4DCT TRACH MIDLINE/SECURE/PATENT, ALARMS SET AND AUDIBLE, AMBU BAG AT BEDSIDE, VENT PLUGGED INTO RED OUTLET, AWARE OF TRANSPORT TO TO SWEET, WILL CONTINUE TO MONITOR.
--- NOTE | 2017-07-14 19:25 | NUR ---
RECEIVED PATIENT ON BED, OBTUNDED; ON TRACH TO VENT AT 30% FIO2; SO2 100%. CARDIACSCOPE SHOWS ON ATRIAL FIB WITH MODERATE VENTRICULAR RESPONSE. ON LEVOPHED DRIP AT 4 MCG/MIN AND ON AMIODARONE DRIP AT 0.5 MG/MIN VIA CENTRAL LINE TO RIGHT INTERNAL JUGULAR; PATENT AND INTACT. ABDOMEN IS SOFT, HYPOACTIVE BOWEL SOUNDS.G TUBE IN PLACE, CLAMPED. [facility]OPE[facility] CATH IN SITU; INTACT.
--- NOTE | 2017-07-14 19:30 | NUR ---
FOR DISCHARGE TO [facility]; STILL WAITING FOR THE PARAMEDICS/AMBULANCE TO PICK HER UP.
--- NOTE | 2017-07-14 19:40 | NUR ---
AMIODARONE DRIP HOLD BECAUSE THE HR NOTED AROUND 64-66/MIN.
--- NOTE | 2017-07-14 20:30 | NUR ---
ENDORSED TO AMBULANCE NURSE. DISCHARGE TO [facility] VIA AMBULANCE.
== END 2017-07-14 20:30 | disposition short-term general hospital (02) | DRG 870 ==
LOC: MED 03:48 → MIC 07:22
PROVIDERS: ADMIT Family Medicine; ATTEND Family Medicine
PROC: 5A1955Z Respiratory Ventilation, Greater than 96 Consecutive Hours (ICD-10-PCS; principal; 2017-07-09)
PROC: 0BH17EZ Insertion of Endotracheal Airway into Trachea, Via Natural or Artificial Opening (ICD-10-PCS; 2017-07-09)
DX: A41.9 Sepsis, unspecified organism (principal); J69.0 Pneumonitis due to inhalation of food and vomit; N17.0 Acute kidney failure with tubular necrosis; J96.21 Acute and chronic respiratory failure with hypoxia; E43 Unspecified severe protein-calorie malnutrition; G82.50 Quadriplegia, unspecified; R65.21 Severe sepsis with septic shock; K94.23 Gastrostomy malfunction; I50.43 Acute on chronic combined systolic (congestive) and diastolic (congestive) heart failure; G93.1 Anoxic brain damage, not elsewhere classified; B37.49 Other urogenital candidiasis; I13.0 Hypertensive heart and chronic kidney disease with heart failure and stage 1 through stage 4 chronic kidney disease, or unspecified chronic kidney disease; J44.0 Chronic obstructive pulmonary disease with (acute) lower respiratory infection; E83.42 Hypomagnesemia; I27.20 Pulmonary hypertension, unspecified; E78.5 Hyperlipidemia, unspecified; E83.51 Hypocalcemia; F03.90 Unspecified dementia, unspecified severity, without behavioral disturbance, psychotic disturbance, mood disturbance, and anxiety; N18.9 Chronic kidney disease, unspecified; D63.8 Anemia in other chronic diseases classified elsewhere; Z96.653 Presence of artificial knee joint, bilateral; K80.20 Calculus of gallbladder without cholecystitis without obstruction; K59.00 Constipation, unspecified; I48.91 Unspecified atrial fibrillation; G40.909 Epilepsy, unspecified, not intractable, without status epilepticus; H40.9 Unspecified glaucoma; I25.10 Atherosclerotic heart disease of native coronary artery without angina pectoris; I25.2 Old myocardial infarction; Z86.711 Personal history of pulmonary embolism; Z86.73 Personal history of transient ischemic attack (TIA), and cerebral infarction without residual deficits; Z86.74 Personal history of sudden cardiac arrest; Z90.49 Acquired absence of other specified parts of digestive tract; Z68.39 Body mass index [BMI] 39.0-39.9, adult
CPT/HCPCS: 36415; 36556; 36600; 51702; 71010; 71275; 74000; 74241; 76705; 80048; 80053; 80076; 80173; 81001; 82533; 82607; 82728; 82746; 82803; 83036; 83540; 83605; 83735; 83880; 84100; 84439; 84443; 84484; 85025; 85045; 85379; 85610; 85730; 87040; 87070; 87081; 87086; 87186; 87205; 93005; 94002; 94003; 94640; 96365; 96368; 96375; 99291; 99292; C9113; J0282; J1160; J1450; J1644; J1720; J1885; J1940; J1953; J1956; J2405; J2543; J2765; J3370; J3475; J3490; J7030; J7060; J7620; P9046; Q0092; Q9967